=== PATIENT | male | born 1965 | race Caucasian/White ===

== ENCOUNTER 2017-10-26 16:45 | Inpatient (IN) ==
[2017-10-26 17:10] LABS: Basophils % 0.3 % (0.1-2.0); Eosinophils # 0.2 K/mm3 (0.0-0.4); Eosinophils % 1.7 % (0.1-12.0); Hematocrit 53.5 % (42.0-52.0); Hemoglobin 16.7 g/dL (14.1-18.0); Lymphocytes % 19.5 K/mm3 (10-50); Mean Corpuscular HGB Conc 31.2 g/dL (31.8-35.4); Mean Corpuscular Hemoglobin 28.2 pg (27.0-31.2); Mean Corpuscular Volume 90.6 fl (80-94); Mean Platelet Volume 7.3 fl (7.4-10.4); Monocytes # 0.6 K/mm3 (0.1-1.0); Monocytes % 6.3 % (1.7-9.3); Neutrophils # 7.4 K/mm3 (1.8-7.8); Neutrophils % 72.2 % (37.0-80.0); Platelet Count 252 K/mm3 (142-424); Red Cell Distribution Width 13.9 % (11.5-17.5); White Blood Count 10.2 K/mm3 (4.8-10.8)
--- NOTE | 2017-10-26 17:13 | Emergency Department Note ---
ED Disposition Clinical Impression: Acute coronary syndrome Disposition: Still a Patient Condition on Discharge: Good - Critical Care Critical Care Time: No Attestation: On 10/26/17, the high probability of a clinically significant, sudden or life threatening deterioration of the following system(s) required my full and direct attention, intervention and personal management. The time I documented below is in addition to time spent performing reported procedures but includes the following listed in this critical care notation. Medical Decision Making - Alvaro Inquiry Pt receiving controlled substance: No Vital Signs: 10/26/17 16:46 10/26/17 17:46 Temperature 98.2 F Temperature Source Oral Pulse Rate [Right Radial] 66 64 Respiratory Rate 18 24 Blood Pressure [Right Arm] 138/84 167/89 Blood Pressure Mean [Right Arm] 102 115 Blood Pressure Source [Right Arm] Automatic Cuff Blood Pressure Position [Right Arm] Sitting 02 Sat by Pulse Oximetry 96 96 Oxygen Delivery Method Room Air - Lab Data Lab Results 10/26/17 17:00: WBC 10.2, RBC 5.90, Hgb 16.7, Hct 53.5 H, MCV 90.6, MCH 28.2, MCHC 31.2 L, RDW 13.9, Plt Count 252, MPV 7.3 L, Neut % (Auto) 72.2, Lymph % ( Auto) 19.5, Ware % (Auto) 6.3, Eos % (Auto) 1.7, Baso % (Auto) 0.3, Neut # (Auto ) 7.4, Lymph # (Auto) 2.0, Ware # (Auto) 0.6, Eos # (Auto) 0.2, Baso # (Auto) 0.0 10/26/17 17:00: Sodium 143, Potassium 3.7, Chloride 105, Carbon Dioxide 28, Anion Gap 13.7, BUN 15, Creatinine 0.95, Estimated Creat Clear 125, Estimated GFR 83, Est GFR ( Amer) 101, Glucose 95, Troponin I 0.07 H Result diagrams: 10/26/17 17:00 10/26/17 17:00 Orders (Tests/Meds): ED MEDICATIONS Discontinued Medications Generic Name Dose Route Start Last Admin Trade Name Freq PRN Reason Stop Dose Admin Aspirin 81 mg 10/26/17 17:01 10/26/17 17:05 Aspirin 81mg Enteric Coated Tablet PO 10/26/17 17:02 81 mg ONCE ONE Administration Atorvastatin Calcium 40 mg 10/26/17 18:42 Lipitor 40mg Tablet PO 10/26/17 18:43 ONCE ONE Metoprolol Tartrate 50 mg 10/26/17 18:42 Lopressor 50mg Tablet PO 10/26/17 18:43 ONCE ONE Ticagrelor 180 mg 10/26/17 18:41 Brilinta 90mg Tablet PO 10/26/17 18:42 ONCE ONE ORDERS Category Date Time Status XR chest 2V Stat Exams 10/26/17 16:57 Taken - ECG Data Tracing #1 EKG interpreted by Faisal Dawson MD: Rhythm: sinus Rate: 64 Bushnell: normal Ectopy: none Conduction: normal ST Segment Changes: none T Wave Changes: none Q Waves: none No evidence of acute ischemia or injury - Physician Consults Physician Consulted: Suad Time: 18:35 Reason -: Pt condition Comment/Response: Brilinta 180 mg, metoprolol, Lipitor 40 mg, plans to perform left heart cath in the morning. Additional Consult: Hollie Glover Time: 18:45 Reason -: Admission Comment/Response: Agrees to admit the patient to the hospital. We discussed the patient's clinical information, including history, exam, laboratory and radiology results and ED course. Per hospital procedure, I will write temporary bridge inpatient orders on the patient. Specific orders requested by the admitting physician: Serial troponins - D[place] Score for Non-STEMI Age of patient: Less than 65 yrs Number of risk factors for CAD: Presence of less than 3 Prior coronary artery stenosis(seen in coronary angiography): Less than 50% (no prior angiography) ST-Segment deviation on ECG (more than 1 min): Absent Prior aspirin intake: ASA intake in the last 7 days Severe anginal chest pain: No or one episode in last 24 hours Elevated cardiac markers(CK-MB or troponin): Present Non-Stemi Risk Score: 2 (no prior angiography) General Adult HPI - General Chief complaint: Chest Pain Stated complaint: CHEST PAIN Time Seen by Provider: 10/26/17 17:00 Mode of Arrival: Ambulatory Limitations: No Limitations Description of Symptoms (Recalled from ER Triage Doc. by RN): CHEST PRESSURE SINCE 1430 TODAY. STATES AT THE TIME THE PAIN LEVEL WAS AN 8/10 AT THE TIME AND NOW A 1/10. PT REPORTS HX OF HEARTBURN. CHEST PRESSURE ON RIGHT CHEST AND RIGHT ARM/SHOULDER. STATES PAIN OCCURED ONE HOUR AFTER EATING. - History of Present Illness HPI narrative: Right sided chest pain going all the way down his right arm with nausea and vomiting that lasted about 90 minutes. Started about 1 hour after eating a bologna sandwich. Denies shortness of breath or diaphoresis with this episode, but had an episode of severe diaphoresis last night after he got in bed, without chest pain, that lasted about 30 minutes. No known heart disease. He is a smoker. Does not have diabetes or hypertension or hyperlipidemia. Takes an aspirin a day. No other prescription medications. No prior cardiac workup. - Related Data Home Medications Medication Instructions Recorded Confirmed Aspirin [Aspir 81] 81 mg PO DAILY 10/26/17 10/26/17 Allergies Allergy/AdvReac Type Severity Reaction Status Date / Time No Known Allergies Allergy Verified 10/26/17 16:57 [facility] History I have reviewed the patient's past medical history: Yes Medical History: Denies:: Cancer, Diabetes Mellitus Type 1, Diabetes Mellitus Type 2, MRSA Amputation: Yes (RIGHT BELOW THE ELBOW AMPUTATION) - Social History Smoking Status: Current every day smoker Tobacco Type: cigars # Packs/Day (cigarettes): 1 Alcohol Intake: current Alcohol Intake Frequency:: a few times a week - Psychiatric History Expresses thoughts of harming self/others: None Suicide Plan Description: No Plan ROS Obtained: Yes All systems reviewed & no additional complaints - Constitutional Constitutional: Reports excessive sweating, Denies fever(s) - Cardiovascular Cardiovascular: Reports chest pain - Respiratory Respiratory: No dyspnea - Gastrointestinal Gastrointestingal: Reports: nausea, vomiting. Denies: abdominal pain Physical Exam - General General appearance: alert, in no apparent distress - Head Head exam: atraumatic, normocephalic, normal inspection - Eye Eye exam: Present: normal appearance, PERRL, EOMI - ENT ENT exam: Present: normal exam, normal oropharynx, mucous membranes moist, TM's normal bilaterally, normal external ear exam - Neck Neck exam: Present: normal inspection, full ROM, trachea midline. Absent: meningismus, lymphadenopathy - Chest Chest inspection: Present: normal inspection, symmetric chest wall rise. Absent : tenderness - Respiratory Respiratory exam: Present: normal lung sounds bilaterally. Absent: respiratory distress - Cardiovascular Cardiovascular exam: Present: regular rate, normal rhythm. Absent: JVD - Abdominal Exam Abdominal exam: Present: soft, normal bowel sounds. Absent: distention, tenderness, guarding - Extremities Exam Extremities exam: Present: normal inspection, full ROM, normal capillary refill. Absent: calf tenderness - Expanded Upper Extremity Exam Right Comment: Amputation of right upper extremity at the mid forearm - Back Exam Back exam: Present: normal inspection. Absent: tenderness - Neurological Exam Neurological exam: Present: alert, oriented X3 - Psychiatric Psychiatric exam: Present: normal affect, normal mood - Skin Skin exam: Present: warm, dry, intact, normal color - Lymphatic Lymphatic Findings: no adenopathy
[2017-10-26 17:29] LABS: Anion Gap 13.7 mEq/L (5-15); Potassium 3.7 mmoL/L (3.5-5.1)
--- NOTE | 2017-10-27 07:35 | Pharmacy Consult Notes ---
[facility] Pharmacy VTE Monitoring - Patient Demographics Admission date: 10/26/17 Report Date: 10/27/17 Time: 07:34 Allergies/Adverse Reactions: Patient Allergies No Known Allergies Allergy (Verified 10/26/17 16:57) Height: 1.85 m Weight: 97.267 kg Patient Problems: Current Active Problems Acute coronary syndrome (Acute) - VTE Risk Labs: VTE Related Lab Results Hgb 16.7 g/dL (14.1-18.0) 10/26/17 17:00 Hct 53.5 % (42.0-52.0) H 10/26/17 17:00 Plt Count 252 K/mm3 (142-424) 10/26/17 17:00 BUN 15 mg/dL (7-18) 10/26/17 17:00 Creatinine 0.95 mg/dL (0.70-1.30) 10/26/17 17:00 Estimated Creat Clear 125 mL/min (0-300) 10/26/17 17:00 Was VTE Risk Assessment Performed: Yes VTE Score: 2 VTE Risk Level: Low Risk - Prophylaxis VTE Prophylaxis Ordered?: Yes Types of VTE Prophylaxis: TEDS Knee High Location of Applied Device: Bilateral Lower Extremeties - VTE Diagnosis Confirmed Treatment or plan recommended: Continue Current Treatment
--- NOTE | 2017-10-27 07:49 | Consult Report ---
History of Present Illness Consult date: 10/27/17 Requesting physician: Yevgeniy Glover Consult reason: chest pain Chief complaint: chest pain Additional Medical History:: 1. Tobacco use, since age 15, up to 2 ppd, stopped 3 months ago 2. FH of CAD in father with VT at age 62 3. 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 A. Anticoagulant for several months then ASA daily since 4. 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 Symptoms progressed and included vomiting. Pt came to ER for evaluation and was admitted. Symptoms were intermittent for a couple of hours with the longest episode lasting about 45 min. EKG was sinus without acute ST segment changes. Troponins noted to be elevated and patient started on Brilinta and beta gayle along with statin. No further chest pain overnight. In retrospect, he did have some diaphoresis the night before without chest pain. [facility] History Medical History: Denies:: Cancer, Diabetes Mellitus Type 1, Diabetes Mellitus Type 2, MRSA Laterality Cases: Right: Other Amputation: Yes (RIGHT BELOW THE ELBOW AMPUTATION) - *Social History Educational Level: Completed Grade School Smoking Status: Current every day smoker Tobacco Type: cigars # Packs/Day (cigarettes): 1 Alcohol Intake: never Alcohol Intake Frequency:: a few times a week Occupational Status: employed Housing: apartment Household Members: spouse - Psychiatric History Expresses thoughts of harming self/others: None Suicide Plan Description: No Plan *Family Hx:: Coronary Artery Disease, Heart Attack Meds Home Medications Medication Instructions Recorded Confirmed Type Aspirin [Aspir 81] 81 mg PO DAILY 10/26/17 10/26/17 History Allergies Allergy/AdvReac Type Severity Reaction Status Date / Time No Known Allergies Allergy Verified 10/26/17 16:57 Review of Systems - *Cardiovascular Reports chest pain - *Respiratory Denies shortness of breath - *Gastrointestinal Reports abdominal pain Exam Vital signs and Labs for Last 24 Hours: Temp Pulse Resp BP Pulse Ox 97.9 F 59 L 16 133/71 96 10/27/17 04:00 10/27/17 04:00 10/27/17 04:00 10/27/17 04:00 10/27/17 04:00 Laboratory Results - last 24 hr 10/26/17 17:00: WBC 10.2, RBC 5.90, Hgb 16.7, Hct 53.5 H, MCV 90.6, MCH 28.2, MCHC 31.2 L, RDW 13.9, Plt Count 252, MPV 7.3 L, Neut % (Auto) 72.2, Lymph % ( Auto) 19.5, [place] % (Auto) 6.3, Eos % (Auto) 1.7, Baso % (Auto) 0.3, Neut # (Auto ) 7.4, Lymph # (Auto) 2.0, [place] # (Auto) 0.6, Eos # (Auto) 0.2, Baso # (Auto) 0.0 10/26/17 17:00: Sodium 143, Potassium 3.7, Chloride 105, Carbon Dioxide 28, Anion Gap 13.7, BUN 15, Creatinine 0.95, Estimated Creat Clear 125, Estimated GFR 83, Est GFR ( Amer) 101, Glucose 95, Troponin I 0.07 H 10/26/17 19:30: Troponin I 0.68 H 10/26/17 22:15: Troponin I 2.76 H 10/27/17 05:25: Troponin I 4.04 H I & O for Last 24 hours: Intake & Output 10/24/17 10/25/17 10/26/17 10/27/17 11:59 11:59 11:59 11:59 Intake Total 480 / 480 Balance 480 / 480 Weight 214 lb 7 oz - *Routine Neck Exam Absent: JVD, carotid bruit - *Routine Respiratory Exam Present: decreased breath sounds, CTA bilaterally - *Routine Cardiovascular Exam Present: RRR. Absent: murmur, gallop, rubs - *Routine Extremities Exam Absent: edema Comments: Right arm missing below the mid forearm - *Routine Neurological Exam Present: alert, oriented X3, moving all extremities Assessment and Plan (1) Acute coronary syndrome Current visit: Yes Status: Acute Category: Medical Code(s): I24.9 - Acute ischemic heart disease, unspecified (2) Ex-smoker for less than 1 year Current visit: Yes Status: Acute Category: Social Hx Code(s): Z78.9 - Other specified health status (3) FH: CAD (coronary artery disease) Current visit: Yes Status: Acute Category: Medical Code(s): Z82.49 - Family history of ischemic heart disease and other diseases of the circulatory system - Assessment and plan all Dx Assessment and Plan for all problems:: 1. Continue ASA, Brilinta, statin and beta gayle 2. [facility] today. Risks, benefits and procedure explained. Pt and 's questions answered. Pt agreeable to proceed. 3. Further recommendations to follow.
--- NOTE | 2017-10-27 08:38 | History & Physical Report ---
*Admission Date: 10/26/17 *Chief complaint: chest pain *History of present illness: 52 yo WM smoker with onset of right sided abdomen and chest pain/pressure with radiation to right arm after eating bologna sandwich. Symptoms progressed and included vomiting. Pt came to ER for evaluation and was admitted. Symptoms were intermittent for a couple of hours with the longest episode lasting about 45 min. EKG was sinus without acute ST segment changes. Troponins noted to be elevated and patient started on Brilinta and beta gayle along with statin. No further chest pain overnight. [facility] History I have reviewed the patient's past medical history: Yes Medical History: Denies:: Cancer, Diabetes Mellitus Type 1, Diabetes Mellitus Type 2, MRSA Laterality Cases: Right: Other Amputation: Yes (RIGHT BELOW THE ELBOW AMPUTATION) - *Social History Educational Level: Completed Grade School Smoking Status: Current every day smoker Tobacco Type: cigars # Packs/Day (cigarettes): 1 Alcohol Intake: never Alcohol Intake Frequency:: a few times a week Occupational Status: employed Housing: apartment Household Members: spouse - Psychiatric History Expresses thoughts of harming self/others: None Suicide Plan Description: No Plan *Family Hx:: Coronary Artery Disease, Heart Attack Review of Systems - Review of Systems Review of systems:: pertinent systems reviewed and negative unless documented below - Constitutional Denies body ache(s), Denies fever(s), Denies headache(s), Denies weakness - Eyes Denies change in vision - ENT Denies bleeding gums - *Cardiovascular Reports chest pain, Reports chest pain at rest, Reports chest pain with activity - *Respiratory Denies chest congestion, Denies cough - *Gastrointestinal Denies bloating - *Genitourinary Denies urinary frequency - *Musculoskeletal Denies decreased muscle mass, Denies body aches - Integumentary/Breasts Denies change in hair, Denies rash - *Neurologic Denies abnormal movements - Psychiatric Denies anxiety, Denies change in appetite - Endocrine Denies flushing - Hematologic/Lymphatic Denies enlarged lymph nodes - Allergic/Immunologic Denies lip swelling Meds Home Medications Medication Instructions Recorded Confirmed Type Aspirin [Aspir 81] 81 mg PO DAILY 10/26/17 10/26/17 History Allergies Allergy/AdvReac Type Severity Reaction Status Date / Time No Known Allergies Allergy Verified 10/26/17 16:57 Exam Vital signs and Labs for Last 24 Hours: Temp Pulse Resp BP Pulse Ox 98.4 F 56 L 16 125/70 96 10/27/17 07:55 10/27/17 07:55 10/27/17 07:55 10/27/17 07:55 10/27/17 07:55 Laboratory Results - last 24 hr 10/26/17 17:00: WBC 10.2, RBC 5.90, Hgb 16.7, Hct 53.5 H, MCV 90.6, MCH 28.2, MCHC 31.2 L, RDW 13.9, Plt Count 252, MPV 7.3 L, Neut % (Auto) 72.2, Lymph % ( Auto) 19.5, Anderson % (Auto) 6.3, Eos % (Auto) 1.7, Baso % (Auto) 0.3, Neut # (Auto ) 7.4, Lymph # (Auto) 2.0, Anderson # (Auto) 0.6, Eos # (Auto) 0.2, Baso # (Auto) 0.0 10/26/17 17:00: Sodium 143, Potassium 3.7, Chloride 105, Carbon Dioxide 28, Anion Gap 13.7, BUN 15, Creatinine 0.95, Estimated Creat Clear 125, Estimated GFR 83, Est GFR ( Amer) 101, Glucose 95, Troponin I 0.07 H 10/26/17 19:30: Troponin I 0.68 H 10/26/17 22:15: Troponin I 2.76 H 10/27/17 05:25: Troponin I 4.04 H I & O for Last 24 hours: Intake & Output 10/24/17 10/25/17 10/26/17 10/27/17 11:59 11:59 11:59 11:59 Intake Total 480 / 480 Balance 480 / 480 Weight 214 lb 7 oz - Constitutional no acute distress - *Routine HEENT Exam Head: Present: normocephalic Eye: Present: PERRL ENT: Present: mucous membranes moist - *Routine Neck Exam Present: full ROM - *Routine Respiratory Exam Present: CTA bilaterally - *Routine Cardiovascular Exam Present: RRR, Normal S1, Normal S2 - *Routine Abdominal Exam Present: soft, normoactive bowel sounds - *Routine Extremities Exam Present: full ROM Comments: Amputation to the right upper extremity right at the elbow- old injury - *Routine Skin Exam Present: intact - *Routine Neurological Exam Present: alert, oriented X3, CN II-XII intact - Routine Psychiatric Exam Present: normal affect, normal thought process H&P: Result - Labs Labs: Short CBC 10/26/17 Range/Units 17:00 WBC 10.2 (4.8-10.8) K/mm3 Hgb 16.7 (14.1-18.0) g/dL Hct 53.5 H (42.0-52.0) % Plt Count 252 (142-424) K/mm3 BMP 10/26/17 17:00 Sodium 143 Potassium 3.7 Chloride 105 Carbon Dioxide 28 BUN 15 Creatinine 0.95 Glucose 95 Cardiac Enzymes 10/26/17 10/26/17 10/26/17 Range/Units 17:00 19:30 22:15 Troponin I 0.07 H 0.68 H 2.76 H (0.00-0.06) ng/ml 10/27/17 Range/Units 05:25 Troponin I 4.04 H (0.00-0.06) ng/ml Assessment and Plan (1) Acute coronary syndrome Current visit: Yes Status: Acute Category: Medical Code(s): I24.9 - Acute ischemic heart disease, unspecified (2) Ex-smoker for less than 1 year Current visit: Yes Status: Acute Category: Social Hx Code(s): Z78.9 - Other specified health status (3) FH: CAD (coronary artery disease) Current visit: Yes Status: Acute Category: Medical Code(s): Z82.49 - Family history of ischemic heart disease and other diseases of the circulatory system - Assessment and plan all Dx Assessment and Plan for all problems:: Heart cath today Rounded with Dr. Glover all orders per Belen
[2017-10-28 06:27] LABS: Hematocrit 49.8 % (42.0-52.0); Hemoglobin 15.3 g/dL (14.1-18.0)
--- NOTE | 2017-10-28 07:30 | Progress Note ---
Subjective Date: 10/28/17 Time: 07:27 Principal diagnosis: NSTEMI Interval history: 52 yo WM in bed in NAD. No complaints. Ready to go home. Discussed meds and diet changes. Exam Vital signs and Labs for Last 24 Hours: Temp Pulse Resp BP Pulse Ox 98.4 F 85 17 94/50 93 L 10/27/17 20:00 10/28/17 06:00 10/28/17 03:41 10/28/17 06:00 10/28/17 06:00 Laboratory Results - last 24 hr 10/27/17 12:49: Activated Clotting Time 297 H* 10/28/17 06:08: Hgb 15.3, Hct 49.8 10/28/17 06:08: Creatinine 0.92, Estimated Creat Clear 129, Estimated GFR 86, Est GFR ( Amer) 105 I & O for Last 24 hours: Intake & Output 10/25/17 10/26/17 10/27/17 10/28/17 11:59 11:59 11:59 11:59 Intake Total 510 / 510 370 / 370 Output Total 500 / 500 Balance 510 / 510 -130 / -130 Weight 214 lb 7 oz - *Routine Respiratory Exam Present: CTA bilaterally - *Routine Cardiovascular Exam Present: RRR. Absent: murmur, gallop - *Routine Extremities Exam Absent: edema Progress Note: A&P (1) Acute coronary syndrome Status: Acute Current Visit: Yes (2) Ex-smoker for less than 1 year Status: Acute Current Visit: Yes (3) FH: CAD (coronary artery disease) Status: Acute Current Visit: Yes (4) NSTEMI (non-ST elevated myocardial infarction) Status: Acute Current Visit: Yes Assessment and Plan for All Diagnoses:: OK for discharge from cardiology standpoint. Telemetry shows no arrhythmias. Sinus bradycardia. Meds: ASA 81 mg daily Brilinta 90 mg BID Lisinopril 2.5 mg daily Metoprolol 25 mg BID Atorvastatin 40 mg daily Follow up in one week.
[2017-10-28 08:27] VITALS: BP 117/65
--- NOTE | 2017-10-28 08:58 | Discharge Summary ---
General - General Admission date:: 10/26/17 Discharge date: 10/28/17 HPI HPI: 52 yo WM smoker with onset of right sided abdomen and chest pain/pressure with radiation to right arm after eating bologna sandwich. Symptoms progressed and included vomiting. Pt came to ER for evaluation and was admitted. Symptoms were intermittent for a couple of hours with the longest episode lasting about 45 min. EKG was sinus without acute ST segment changes. Troponins noted to be elevated and patient started on Brilinta and beta gayle along with statin. No further chest pain overnight. Hospital Course Hospital Course: Patient states today he is feeling fine denies any chest pain or pressure. We will discharge home with new medications patient to follow-up with Dr. Suad Glover next week. ANGIOGRAPHIC RESULTS: 1. The left main artery has an ostial 10-20% stenosis 2. The left anterior descending artery has a very proximal 40% stenosis followed by a very hazy 70% stenosis immediately proximal to a large first diagonal artery. The mid LAD then has an additional 30-40% mid vessel stenosis 3. The circumflex artery is a nondominant yet still large vessel giving rise to a large first obtuse marginal artery with multiple distal branches. The first obtuse marginal artery has a proximal 90% stenosis 4. The right coronary artery is a dominant vessel and has proximal and mid vessel 20% stenoses 5. The [place] ventriculogram reveals normal ejection fraction 65% 6. The left ventricular end-diastolic pressure 10 mmHg IMPRESSION: 1.Severe 2 vessel coronary artery disease as described above 2.Successful stenting the proximal LAD severe stenosis reduced to 0% with 1 drug-eluting stent 3. Successful stenting of the large first obtuse marginal artery off the circumflex artery severe disease reduced to 0% with 1 drug-eluting stent 4. Normal ejection fraction and normal left ventricular end-diastolic pressure PLAN: 1. Continue Brilinta and aspirin for one year 2. LDL less than 55 with aggressive risk factor modification 3. Avoidance of tobacco products with physical therapy and cardiac rehabilitation 4. Carvedilol and lisinopril if blood pressure will allow Objective Vital signs: Temp Pulse Resp BP Pulse Ox 98.4 F 54 L 18 117/65 93 L 10/27/17 20:00 10/28/17 08:26 10/28/17 08:26 10/28/17 08:26 10/28/17 06:00 no acute distress - *Routine HEENT Exam Head: Present: normocephalic Eye: Present: PERRL ENT: Present: mucous membranes moist - *Routine Neck Exam Present: supple, full ROM - *Routine Respiratory Exam Present: CTA bilaterally - *Routine Cardiovascular Exam Present: RRR - *Routine Abdominal Exam Present: soft, normoactive bowel sounds - *Routine Extremities Exam Present: full ROM - *Routine Skin Exam Present: intact - *Routine Neurological Exam Present: alert, oriented X3, CN II-XII intact - Routine Psychiatric Exam Present: normal affect, normal thought process Results Labs on day of discharge: Labs from last 24 hours 10/28/17 10/28/17 10/27/17 06:08 06:08 12:49 Hgb 15.3 Hct 49.8 Activated Clotting Time 297 H* Creatinine 0.92 Estimated Creat Clear 129 Estimated GFR 86 Est GFR ( Amer) 105 - Additional Comments Rounded with Dr. Glover all orders per Belen DS: Diagnosis - Discharge Diagnosis (1) Acute coronary syndrome Status: Acute (2) Ex-smoker for less than 1 year Status: Acute (3) FH: CAD (coronary artery disease) Status: Acute (4) NSTEMI (non-ST elevated myocardial infarction) Status: Acute Discharge Plan - Patient Discharge Instructions ACTIVITY: Continue current activity DIET: continue same diet - Follow up Plan Follow up with: Dawit Borjas MD [Staff Physician] - 1 week Yevgeniy Glover MD [Primary Care Provider] - 1 week Disposition: Home, Self-Care Prescriptions/Medication Reconciliation: New Atorvastatin Calcium [Lipitor 40mg Tablet] 40 mg PO HS 30 Days #30 tab Lisinopril [Zestril 2.5mg Tablet] 2.5 mg PO DAILY 30 Days #30 tab Metoprolol Tartrate [Lopressor 25mg tablet] 25 mg PO BID 30 Days #60 tab Ticagrelor [Brilinta 90mg Tablet] 90 mg PO BID 30 Days #60 tab Continue Aspirin [Aspir 81] 81 mg PO DAILY 30 Days #30 tablet.
== END 2017-10-28 10:10 | disposition home or self-care (01) ==
LOC: ER 16:45 → 2ND 16:45 → OBSVTOIN 18:49 → 2ND 19:32
PROVIDERS: ADMIT Internal Medicine Adolescent Medicine; ATTEND Emergency Medicine

== ENCOUNTER → 2017-11-04 07:56 | Outpatient (CLI) | payer BC, SELFPAY ==
[2017-11-04 10:16] LABS: Alanine Aminotransferase 27 U/L (12-78); Albumin Level 3.7 gm/dL (3.4-5.0); Alkaline Phosphatase 120 U/L (46-116); Bilirubin,Direct 0.1 mg/dL (0.0-0.2); Bilirubin,Indirect 0.2 mg/dL (0.0-0.9); Bilirubin,Total 0.3 mg/dL (0.2-1.0); Chol/HDL Ratio 5.4 (1-3.5); Cholesterol 158 mg/dL (140-200); HDL Cholesterol 29 mg/dL (27-67); LDL Cholesterol 111 mg/dL (0-130); Total Protein,Serum 7.1 gm/dL (6.4-8.2); Triglycerides 92 mg/dL (30-200); VLDL Cholesterol 18 mg/dL (0-40)
[2017-11-04 10:26] LABS: Aspartate Amino Transferase 20 U/L (15-37)
== END ==
PROVIDERS: Visit Provider Internal Medicine
DX: I25.10 Atherosclerotic heart disease of native coronary artery without angina pectoris (principal); I10 Essential (primary) hypertension; E78.5 Hyperlipidemia, unspecified
CPT/HCPCS: 36415; 80061; 80076

== ENCOUNTER → 2018-03-18 10:06 | Outpatient (CLI) | payer BC, SELFPAY ==
[2018-03-18 11:15] LABS: Alanine Aminotransferase 27 U/L (12-78); Albumin Level 3.5 gm/dL (3.4-5.0); Alkaline Phosphatase 101 U/L (46-116); Aspartate Amino Transferase 22 U/L (15-37); Bilirubin,Direct 0.1 mg/dL (0.0-0.2); Bilirubin,Indirect 0.5 mg/dL (0.0-0.9); Bilirubin,Total 0.6 mg/dL (0.2-1.0); Chol/HDL Ratio 4.1 (1-3.5); Cholesterol 123 mg/dL (140-200); HDL Cholesterol 30 mg/dL (27-67); LDL Cholesterol 80 mg/dL (0-130); Total Protein,Serum 6.8 gm/dL (6.4-8.2); Triglycerides 63 mg/dL (30-200); VLDL Cholesterol 13 mg/dL (0-40)
== END ==
PROVIDERS: Family Provider Emergency Medicine; PCP Emergency Medicine; Visit Provider Physician Assistant
DX: E78.49 Other hyperlipidemia (principal); I11.9 Hypertensive heart disease without heart failure; I21.4 Non-ST elevation (NSTEMI) myocardial infarction; I24.9 Acute ischemic heart disease, unspecified; I25.10 Atherosclerotic heart disease of native coronary artery without angina pectoris; R94.31 Abnormal electrocardiogram [ECG] [EKG]; F17.200 Nicotine dependence, unspecified, uncomplicated; Z72.0 Tobacco use
CPT/HCPCS: 36415; 80061; 80076

== ENCOUNTER → 2019-03-13 08:47 | Outpatient (CLI) | payer BC, SELFPAY ==
[2019-03-13 09:28] LABS: Alanine Aminotransferase 17 U/L (12-78); Albumin Level 3.6 gm/dL (3.4-5.0); Alkaline Phosphatase 95 U/L (46-116); Aspartate Amino Transferase 18 U/L (15-37); Bilirubin,Direct 0.1 mg/dL (0.0-0.2); Bilirubin,Indirect 0.2 mg/dL (0.0-0.9); Bilirubin,Total 0.3 mg/dL (0.2-1.0); Chol/HDL Ratio 3.4 (1-3.5); Cholesterol 116 mg/dL (140-200); HDL Cholesterol 34 mg/dL (27-67); LDL Cholesterol 66 mg/dL (0-130); Total Protein,Serum 7.4 gm/dL (6.4-8.2); Triglycerides 78 mg/dL (30-200); VLDL Cholesterol 16 mg/dL (0-40)
== END ==
PROVIDERS: Visit Provider Nurse Practitioner Family
DX: E78.5 Hyperlipidemia, unspecified (principal); I11.9 Hypertensive heart disease without heart failure; I25.10 Atherosclerotic heart disease of native coronary artery without angina pectoris; Z72.0 Tobacco use
CPT/HCPCS: 36415; 80061; 80076

== ENCOUNTER → 2020-04-14 07:42 | Outpatient (CLI) | payer BC, SELFPAY ==
--- NOTE | 2020-04-14 07:43 | CA_ITS ---
APPROVED REPORT EXAM: Comprehensive 2D, Doppler, and color-flow Echocardiogram Fan Runner: Marie Leonard RDCS Ht: 6 ft 1 in Wt: 215lbs BSA: 2.22 BP: 143/73 mmHg Indications: CAD,SMOKER,HTN,HLP 2D Dimensions LVOT 1.74 cm (M/F) 1.5-2.5 M-Mode Dimensions RVDd 2.55 cm (0.9-2.6) LA Diam 2.64 cm (1.9-4.0) LVDd 5.52 cm (3.5-5.7) Ao Diam 3.32 cm (2.0-3.7) LVDs 4.76 cm (3.5-5.7) IVSd 0.68 cm (0.6-1.1) PWd 0.68 cm (0.6-1.1) EF (Teich) 29.10% FS 13.80% EDV (Teich) 148.70 mL ESV (Teich) 105.40 mL LV Diastology E Decel Time 183.00 (160-240 msec) E/A Ratio 1.1 MED E' 9.40 (< 7 cm/sec) E'/MED E' Ratio 8.13 (>14) LAT E' 9.70 (<10 cm/sec) E/LAT E' Ratio 7.88 (>14) Mitral Valve MV E Max Seven. 76.00 (40-130 cm/s) MV A Velocity 68.00 (40-130 cm/s) E/A Ratio 1.12 MV Decel. Time 183.00 (160-240 ms) MV PHT 54.00 ms Left Ventricle Technically very difficult study because of the patient factors and poor acoustic windows, left ventricle is normal size, visually estimated ejection fraction 50% with mild inferior basal wall hypokinesis, endocardial surfaces are very poorly visualized, repeat study with Definity contrast is recommended. Right Ventricle Right atrium and right ventricle are normal size and contractility. Aortic Valve Aortic valve is minimally thickened and fibrosed, there is no aortic stenosis or aortic insufficiency. Mitral Valve Mitral valve is grossly normal, there is mild mitral regurgitation. Tricuspid Valve Tricuspid valve is grossly normal, there is mild tricuspid regurgitation, tricuspid regurgitation jet velocity is inadequate for calculation of the right ventricular systolic pressure. Pulmonic Valve Pulmonic valve is poorly visualized. Great Vessels Aortic root is normal size. Pericardium No significant pericardial effusion noted. Conclusion 1. Technically very poor and difficult study, repeat study with Definity contrast is recommended. 2. Normal left ventricular size, visually estimated ejection fraction 50% with segmental wall motion abnormality described above, endocardial surfaces are very poorly visualized. Diastolic parameters are inconclusive. 3. Mild mitral and tricuspid regurgitation. 4. No significant pericardial effusion noted. Electronically signed by : Huber Sifuentes, 04/15/2020 05:59:51
== END ==
PROVIDERS: PCP Emergency Medicine; Visit Provider Urology
DX: I25.10 Atherosclerotic heart disease of native coronary artery without angina pectoris (principal); I11.9 Hypertensive heart disease without heart failure; E78.5 Hyperlipidemia, unspecified; Z72.0 Tobacco use
CPT/HCPCS: 93306

== ENCOUNTER → 2020-07-08 07:42 | Outpatient (CLI) | payer BC, SELFPAY ==
[2020-07-08 08:59] LABS: Alanine Aminotransferase 21 U/L (12-78); Albumin Level 4.4 g/dl (3.5-5.0); Alkaline Phosphatase 96 U/L (38-126); Aspartate Amino Transferase 30 U/L (17-59); Bilirubin,Direct 0.3 mg/dl (0.0-0.4); Bilirubin,Indirect 0.4 mg/dL (0.0-0.9); Bilirubin,Total 0.7 mg/dl (0.2-1.3); Bilirubin,Unconjugated 0.4 mg/dL (0.0-1.1); Chol/HDL Ratio 3.4 (1-3.5); Cholesterol 138 mg/dl (140-200); HDL Cholesterol 41 mg/dl (40-60); Total Protein,Serum 7.6 g/dl (6.3-8.2); Triglycerides 89 mg/dl (30-150); VLDL Cholesterol 18 mg/dL (0-40)
[2020-07-08 09:10] LABS: Direct LDL Cholesterol 77.58 mg/dL (100-129)
== END ==
PROVIDERS: Nurse Practitioner Family; Visit Provider Internal Medicine
DX: E78.2 Mixed hyperlipidemia (principal)
CPT/HCPCS: 36415; 80061; 80076

== ENCOUNTER → 2021-06-13 12:22 | Outpatient (CLI) | payer BC, SELFPAY | PROVIDERS: PCP Emergency Medicine; Visit Provider Nurse Practitioner Family | DX: U07.1 COVID-19 (principal) | CPT/HCPCS: C9803; U0003; U0005 ==

== ENCOUNTER → 2021-07-14 08:43 | Outpatient (CLI) | payer BC, SELFPAY ==
--- NOTE | 2021-07-14 08:59 | XR_ITS ---
FINAL REPORT CLINICAL HISTORY: tobacco use.. COMPARISON: 10/26/2017 FINDINGS: TWO VIEWS OF THE CHEST The heart is normal in size. The mediastinum is unremarkable. The lungs are hyperinflated consistent with COPD. Mild scarring is noted. There is no pneumothorax. IMPRESSION: COPD. Reviewed, Interpreted and Dictated by João Waters III, MD Transcribed by Echo Woodard Authenticated by João Waters III, MD on 07/14/2021 11:04:16 AM [facility]
[2021-07-14 10:04] LABS: Basophils % 0.4 % (0.1-2.0); Eosinophils # 0.1 K/mm3 (0.0-0.4); Eosinophils % 1.3 % (0.1-12.0); Hemoglobin 17.4 g/dL (14.1-18.0); Lymphocytes # 1.8 K/mm3 (0.7-4.5); Lymphocytes % 23.5 % (10-50); Mean Corpuscular HGB Conc 32.3 g/dL (31.8-35.4); Mean Corpuscular Hemoglobin 30.6 pg (27.0-31.2); Mean Corpuscular Volume 94.9 fl (80-94); Monocytes # 0.5 K/mm3 (0.1-1.0); Monocytes % 6.1 % (1.7-9.3); Neutrophils # 5.4 K/mm3 (1.8-7.8); Neutrophils % 68.7 % (37.0-80.0); Platelet Count 195 K/mm3 (142-424); Red Blood Count 5.69 M/mm3 (4.60-6.20); Red Cell Distribution Width 13.6 % (11.5-17.5); White Blood Count 7.8 K/mm3 (4.8-10.8)
[2021-07-14 10:30] LABS: Bilirubin,Unconjugated 0.3 mg/dL (0.0-1.1); Blood Urea Nitrogen 17 mg/dl (9-20); Carbon Dioxide 30 mmol/L (22.0-30.0); Estimated Glomerular Filt Rate 100 ml/min (>60); GFR (African American) 121 ML/MIN (>60)
[2021-07-14 10:31] LABS: Alkaline Phosphatase 80 U/L (38-126); Bilirubin,Direct 0.3 mg/dl (0.0-0.4); Bilirubin,Indirect 0.3 mg/dL (0.0-0.9); Bilirubin,Total 0.6 mg/dl (0.2-1.3); Cholesterol 176 mg/dl (140-200); Triglycerides 82 mg/dl (30-150); VLDL Cholesterol 16 mg/dL (0-40)
[2021-07-14 10:41] LABS: Chloride 104 mmol/L (98-107)
[2021-07-14 10:42] LABS: Direct LDL Cholesterol 121.65 mg/dL (100-129); Sodium 137 mmol/L (136-145)
[2021-07-14 10:44] LABS: Alanine Aminotransferase 19 U/L (12-78)
[2021-07-14 10:45] LABS: Albumin Level 4.3 g/dl (3.5-5.0); Aspartate Amino Transferase 29 U/L (17-59); Calcium 8.6 mg/dl (8.4-10.2); Chol/HDL Ratio 4.3 (1-3.5); Glucose 104 mg/dl (74-100); HDL Cholesterol 41 mg/dl (40-60); Total Protein,Serum 7.2 g/dl (6.3-8.2)
[2021-07-14 11:08] LABS: Anion Gap 7.6 mEq/L (5-15); Potassium 4.6 mmoL/L (3.5-5.1)
== END ==
PROVIDERS: PCP Emergency Medicine; Visit Provider Physician Assistant
DX: I25.10 Atherosclerotic heart disease of native coronary artery without angina pectoris (principal); R00.1 Bradycardia, unspecified; I11.9 Hypertensive heart disease without heart failure; E78.2 Mixed hyperlipidemia; I63.9 Cerebral infarction, unspecified; E11.9 Type 2 diabetes mellitus without complications; Z72.0 Tobacco use
CPT/HCPCS: 36415; 71046; 80048; 80061; 80076; 85025

== ENCOUNTER → 2021-12-29 10:04 | Outpatient (CLI) | payer BC, SELFPAY ==
[2021-12-29 11:10] LABS: Basophils # 0.1 K/mm3 (0-0.2); Basophils % 0.6 % (0.1-2.0); Eosinophils # 0.1 K/mm3 (0.0-0.4); Eosinophils % 1.5 % (0.1-12.0); Hematocrit 50.3 % (42.0-52.0); Lymphocytes # 1.7 K/mm3 (0.7-4.5); Lymphocytes % 19.1 % (10-50); Mean Corpuscular HGB Conc 31.8 g/dL (31.8-35.4); Mean Corpuscular Hemoglobin 30.4 pg (27.0-31.2); Mean Corpuscular Volume 95.6 fl (80-94); Mean Platelet Volume 8.4 fl (7.4-10.4); Monocytes # 0.7 K/mm3 (0.1-1.0); Monocytes % 7.3 % (1.7-9.3); Neutrophils # 6.3 K/mm3 (1.8-7.8); Neutrophils % 71.4 % (37.0-80.0); Platelet Count 205 K/mm3 (142-424); Red Blood Count 5.26 M/mm3 (4.60-6.20); White Blood Count 8.8 K/mm3 (4.8-10.8)
[2021-12-29 11:36] LABS: Chloride 106 mmol/L (98-107); Potassium 4.5 mmoL/L (3.5-5.1); Sodium 139 mmol/L (136-145)
[2021-12-29 11:39] LABS: Alanine Aminotransferase 21 U/L (12-78); Anion Gap 10.5 mEq/L (5-15); Aspartate Amino Transferase 35 U/L (17-59); Bilirubin,Unconjugated 0.1 mg/dL (0.0-1.1); Calcium 9.5 mg/dl (8.4-10.2); Carbon Dioxide 27 mmol/L (22.0-30.0); Glucose 110 mg/dl (74-100)
[2021-12-29 11:40] LABS: Albumin Level 4.2 g/dl (3.5-5.0); Alkaline Phosphatase 108 U/L (38-126); Bilirubin,Direct 0.2 mg/dl (0.0-0.4); Bilirubin,Indirect 0.1 mg/dL (0.0-0.9); Bilirubin,Total 0.3 mg/dl (0.2-1.3); Chol/HDL Ratio 3.5 (1-3.5); Cholesterol 114 mg/dl (140-200); HDL Cholesterol 33 mg/dl (40-60); Total Protein,Serum 6.8 g/dl (6.3-8.2); Triglycerides 50 mg/dl (30-150); VLDL Cholesterol 10 mg/dL (0-40)
[2021-12-29 11:51] LABS: Direct LDL Cholesterol 72.66 mg/dL (100-129)
[2021-12-29 13:14] LABS: Blood Urea Nitrogen 17 mg/dl (9-20); Estimated Glomerular Filt Rate 100 ml/min (>60); GFR (African American) 121 ML/MIN (>60)
== END ==
PROVIDERS: PCP Emergency Medicine; Visit Provider Physician Assistant
DX: I25.10 Atherosclerotic heart disease of native coronary artery without angina pectoris (principal); I11.9 Hypertensive heart disease without heart failure; R00.1 Bradycardia, unspecified; E78.5 Hyperlipidemia, unspecified; Z72.0 Tobacco use; Z82.49 Family history of ischemic heart disease and other diseases of the circulatory system
CPT/HCPCS: 36415; 80048; 80061; 80076; 85025

== ENCOUNTER 2022-06-03 16:31 | Emergency (ER) | payer BC, SELFPAY ==
[2022-06-03 16:37] VITALS: BP 126/72; PULSE 76; RESP 18; TEMP 37.4; O2SAT 98; BMI 24.1
--- NOTE | 2022-06-03 16:44 | XR_ITS ---
PROCEDURE INFORMATION: Exam: XR Chest Exam date and time: 06/03/2022 5:08 PM Age: 57 years old Clinical indication: Shortness of breath; Additional info: Sob/cp TECHNIQUE: Imaging protocol: Radiologic exam of the chest. Views: 1 view. COMPARISON: CR XR CHEST 2V 07/14/2021 9:24 AM FINDINGS: Lungs: Unremarkable. No consolidation. Pleural spaces: Unremarkable. No pleural effusion. No pneumothorax. Heart/Mediastinum: Unremarkable. No cardiomegaly. Bones/joints: Unremarkable. IMPRESSION: No acute findings.
--- NOTE | 2022-06-03 16:44 | HMH.EDGENADL ---
Discharge Plan Disposition Patient Disposition: Home, Self-Care Condition: Good Prescriptions Prescriptions: New ondansetron 4 mg tablet,disintegrating 4 mg PO Q6H PRN (Reason: nausea and vomiting) Qty: 30 0RF benzonatate 200 mg capsule 200 mg PO BID Qty: 60 0RF prednisone 50 mg tablet 50 mg PO DAILY 5 Days Qty: 5 0RF No Action aspirin [Adult Low Dose Aspirin] 81 mg tablet,delayed release (DR/EC) 81 mg PO DAILY atorvastatin 80 mg tablet 80 mg PO DAILY Qty: 90 3RF lisinopril 2.5 mg tablet See Rx Instructions .ROUTE .COMPLEX Qty: 90 1RF Dose Instruction: Take 1 tablet by mouth once daily Rx Instructions: Take 1 tablet by mouth once daily metoprolol tartrate 25 mg tablet See Rx Instructions .ROUTE .COMPLEX Qty: 180 1RF Dose Instruction: Take 1 tablet by mouth twice daily Rx Instructions: Take 1 tablet by mouth twice daily Referrals Follow up/Referrals: Yevgeniy Glover MD [Primary Care Provider] - See instructions Clinical Impressions Clinical Impression: Cough, Acute bronchitis, Nausea & vomiting Instructions Patient Instructions: DI for Diarrhea and Traveler's Diarrhea -- Adult, DI for Diarrhea and Traveler's Diarrhea -- Child, DI for Nausea -- Adult, DI for Nausea -- Child Discharge ED Provider: Ernie Madrid Adult HPI General Chief complaint: Nausea/Vomiting/Diarrhea Stated complaint: cough,vomiting Time Seen by Provider: 06/03/22 16:35 Mode of Arrival: Ambulatory History of Present Illness HPI narrative: 57-year-old male, past medical history of CAD, tobacco use, hypertension, hyperlipidemia. Presents to the emergency department with complaints of nausea, vomiting, anorexia, inability to keep down p.o. intake including solids and liquids since [place] or approximately 10 days. There is been associated 15 pound weight loss over that time period as well. He also states that over the last days developed cough that has progressed from thinnish secretions to thicker and yellow sputum. Reports some subjective fevers, denies chills, abdominal pain, diarrhea, chest pain. He has not had medicine for nausea or vomiting is not received any treatment for the cough thus far. States he took a home COVID test couple of days ago which had a faint positive on however took 1 today which was negative. Related Data Home Medications Medication Instructions Recorded Confirmed aspirin 81 mg tablet,delayed 81 mg PO DAILY 06/25/20 12/29/21 release (Adult Low Dose Aspirin) Previous Rx's Medication Instructions Recorded atorvastatin 80 mg tablet 80 mg PO DAILY #90 tabs 07/14/21 lisinopril 2.5 mg tablet See Rx Instructions .Route 12/17/21 .COMPLEX #90 tabs metoprolol tartrate 25 mg tablet See Rx Instructions .Route 05/25/22 .COMPLEX #180 tabs benzonatate 200 mg capsule 200 mg PO BID #60 caps 06/03/22 ondansetron 4 mg disintegrating 4 mg PO Q6H PRN nausea and 06/03/22 tablet vomiting #30 tabs prednisone 50 mg tablet 50 mg PO DAILY 5 days #5 tabs 06/03/22 Allergies Allergy/AdvReac Type Severity Reaction Status Date / Time No Known Allergies Allergy Verified 12/29/21 09:41 [facility] Disclaimer: The information contained in this section may have been updated after the patient was seen, as this information can be updated by other users. Medical History CAD (coronary artery disease) HHD (hypertensive heart disease) HLD (hyperlipidemia) Tobacco abuse Social History Smoking Status: Current every day smoker tobacco type: cigarettes packs per day: 1 second hand exposure: No alcohol intake: current substance use type: denies use current occupational status: employed Travel in the last 8 weeks: Inside the [place] household members: spouse housing: apartment current occupation: [employer] current occupation
--- NOTE | 2022-06-03 16:56 | PC.NURSE ---
rad at [facility] for portable xray
[2022-06-03 17:11] LABS: Coronavirus 19, PCR Not Detected (NotDetected); Influenza A, PCR Not Detected (NotDetected); Influenza B, PCR Not Detected (NotDetected)
[2022-06-03 17:13] LABS: Basophils # 0.1 K/mm3 (0-0.2); Basophils % 0.5 % (0.1-2.0); Eosinophils # 0.1 K/mm3 (0.0-0.4); Eosinophils % 0.9 % (0.1-12.0); Hematocrit 45.6 % (42.0-52.0); Hemoglobin 15.3 g/dL (14.1-18.0); Lymphocytes % 12.9 % (10-50); Mean Corpuscular HGB Conc 33.5 g/dL (31.8-35.4); Mean Corpuscular Hemoglobin 30.5 pg (27.0-31.2); Mean Platelet Volume 7.6 fl (7.4-10.4); Monocytes # 1.1 K/mm3 (0.1-1.0); Monocytes % 7.1 % (1.7-9.3); Neutrophils # 12.1 K/mm3 (1.8-7.8); Neutrophils % 78.5 % (37.0-80.0); Platelet Count 336 K/mm3 (142-424); Red Blood Count 5.01 M/mm3 (4.60-6.20); Red Cell Distribution Width 12.9 % (11.5-17.5); White Blood Count 15.4 K/mm3 (4.8-10.8)
[2022-06-03 17:15] LABS: MANUAL DIFFERENTIAL MANUAL DIFFERENTIAL (MANUAL DIFF)
[2022-06-03 17:30] VITALS: BP 107/64; PULSE 66; O2SAT 98
[2022-06-03 17:42] LABS: Eosinophils % 1 % (0-3); Lymphocytes % 18 % (10-50); Monocytes % 2 % (2-9); Neutrophils % 79 % (42-76); Platelet Estimate Normal; RBC Morphology Normal; Total Cells Counted 100
[2022-06-03 18:00] VITALS: BP 114/63; PULSE 61; RESP 20; O2SAT 96
[2022-06-03 18:03] LABS: Chloride 101 mmol/L (98-107)
[2022-06-03 18:04] LABS: Potassium 3.8 mmoL/L (3.5-5.1); Sodium 137 mmol/L (136-145)
[2022-06-03 18:06] LABS: Alanine Aminotransferase 21 U/L (12-78); Albumin/Globulin Ratio 1.1 (1.1-1.8); Alkaline Phosphatase 84 U/L (38-126); Anion Gap 11.8 mEq/L (5-15); Aspartate Amino Transferase 32 U/L (17-59); Bilirubin,Total 0.7 mg/dl (0.2-1.3); Blood Urea Nitrogen 10 mg/dl (9-20); Calcium 8.7 mg/dl (8.4-10.2); Carbon Dioxide 28 mmol/L (22.0-30.0); Creatinine Clearance Estimated 133 mL/min (50-200); Estimated Glomerular Filt Rate 116 ml/min (>60); GFR (African American) 141 ML/MIN (>60); Globulin 3.7 g/dL (1.3-3.2); Glucose 85 mg/dl (74-100); Total Protein,Serum 7.7 g/dl (6.3-8.2)
[2022-06-03 18:07] LABS: Magnesium 1.8 mg/dl (1.6-2.3)
[2022-06-03 18:30] VITALS: BP 111/67; PULSE 67; RESP 18; O2SAT 99
[2022-06-03 19:02] VITALS: BP 111/67; PULSE 67; RESP 18; TEMP 37.4; O2SAT 99
[2022-06-03 19:10] LABS: Procalcitonin 0.052 ng/mL (0.0-2.0)
== END 2022-06-03 19:02 | disposition home or self-care (01) ==
PROVIDERS: Emergency Provider Emergency Medicine; PCP Emergency Medicine
DX: J20.9 Acute bronchitis, unspecified (principal); R11.2 Nausea with vomiting, unspecified; I25.10 Atherosclerotic heart disease of native coronary artery without angina pectoris; F17.210 Nicotine dependence, cigarettes, uncomplicated; I10 Essential (primary) hypertension; E78.5 Hyperlipidemia, unspecified; Z20.822 Contact with and (suspected) exposure to COVID-19
CPT/HCPCS: 71045; 80053; 83735; 84145; 85007; 85025; 96361; 96374; 99285; C9803; U0003; U0005

== ENCOUNTER → 2023-01-01 08:31 | Outpatient (CLI) | payer BC, SELFPAY ==
[2023-01-01 08:52] LABS: Basophils % 0.5 % (0.1-2.0); Eosinophils # 0.2 K/mm3 (0.0-0.4); Eosinophils % 1.6 % (0.1-12.0); Hematocrit 49.7 % (42.0-52.0); Hemoglobin 16.4 g/dL (14.1-18.0); Lymphocytes # 1.9 K/mm3 (0.7-4.5); Lymphocytes % 21.5 % (10-50); Mean Corpuscular Hemoglobin 29.9 pg (27.0-31.2); Mean Corpuscular Volume 90.7 fl (80-94); Mean Platelet Volume 7.4 fl (7.4-10.4); Monocytes # 0.6 K/mm3 (0.1-1.0); Monocytes % 7.1 % (1.7-9.3); Neutrophils # 6.2 K/mm3 (1.8-7.8); Neutrophils % 69.3 % (37.0-80.0); Platelet Count 169 K/mm3 (142-424); Red Blood Count 5.48 M/mm3 (4.60-6.20); Red Cell Distribution Width 13.3 % (11.5-17.5)
[2023-01-01 10:02] LABS: Alanine Aminotransferase 25 U/L (12-78); Albumin Level 4.1 g/dl (3.5-5.0); Alkaline Phosphatase 93 U/L (38-126); Anion Gap 11.4 mEq/L (5-15); Aspartate Amino Transferase 30 U/L (17-59); Bilirubin,Indirect 0.3 mg/dL (0.0-0.9); Bilirubin,Total 0.3 mg/dl (0.2-1.3); Bilirubin,Unconjugated 0.5 mg/dL (0.0-1.1); Blood Urea Nitrogen 23 mg/dl (9-20); Calcium 9.2 mg/dl (8.4-10.2); Carbon Dioxide 27 mmol/L (22.0-30.0); Chloride 108 mmol/L (98-107); Chol/HDL Ratio 3.4 (1-3.5); Cholesterol 126 mg/dl (140-200); Estimated Glomerular Filt Rate 100 ml/min (>60); GFR (African American) 121 ML/MIN (>60); Glucose 110 mg/dl (74-100); HDL Cholesterol 37 mg/dl (40-60); Potassium 4.4 mmoL/L (3.5-5.1); Sodium 142 mmol/L (136-145); Total Protein,Serum 6.8 g/dl (6.3-8.2); Triglycerides 61 mg/dl (30-150); VLDL Cholesterol 12 mg/dL (0-40)
[2023-01-01 10:13] LABS: Direct LDL Cholesterol 73.49 mg/dL (100-129)
[2023-01-01 10:18] LABS: Free T4 (Free Thyroxine) 0.71 ng/dl (0.78-2.19)
[2023-01-01 10:33] LABS: Thyroid Stimulating Hormone 1.96 uIU/mL (0.465-4.68)
== END ==
PROVIDERS: PCP Emergency Medicine; Visit Provider Nurse Practitioner Family
DX: I25.10 Atherosclerotic heart disease of native coronary artery without angina pectoris (principal); I11.9 Hypertensive heart disease without heart failure; E78.5 Hyperlipidemia, unspecified; Z72.0 Tobacco use; Z79.899 Other long term (current) drug therapy
CPT/HCPCS: 36415; 80048; 80061; 80076; 83735; 84439; 84443; 85025

== ENCOUNTER 2023-07-26 16:52 | Emergency (ER) | payer BC, SELFPAY ==
[2023-07-26 16:54] VITALS: BP 137/72; PULSE 70; RESP 18; TEMP 36.9; O2SAT 95; BMI 25.3
--- NOTE | 2023-07-26 17:01 | ED_ITS ---
Discharge Plan Disposition Patient Disposition: Home, Self-Care Condition: Good Prescriptions Prescriptions: New prednisone 50 mg tablet 50 mg PO DAILY 5 Days Qty: 5 0RF albuterol sulfate 90 mcg/actuation HFA aerosol inhaler 2 inh inhalation Q4H PRN (Reason: shortness of breath or wheezing) Qty: 8.5 0RF tamsulosin 0.4 mg capsule 0.4 mg PO HS Qty: 30 0RF No Action aspirin [Adult Low Dose Aspirin] 81 mg tablet,delayed release (DR/EC) 81 mg PO DAILY metoprolol tartrate 25 mg tablet See Rx Instructions .ROUTE .COMPLEX Qty: 180 1RF Dose Instruction: Take 1 tablet by mouth twice daily Rx Instructions: Take 1 tablet by mouth twice daily atorvastatin 80 mg tablet See Rx Instructions .ROUTE .COMPLEX Qty: 90 1RF Dose Instruction: Take 1 tablet by mouth once daily Rx Instructions: Take 1 tablet by mouth once daily lisinopril 2.5 mg tablet See Rx Instructions .ROUTE .COMPLEX Qty: 90 4RF Dose Instruction: Take 1 tablet by mouth once daily Rx Instructions: Take 1 tablet by mouth once daily Referrals Follow up/Referrals: Erik Garza DO [Primary Care Provider] - See instructions Erik Kelsey MD [Staff Physician] - See instructions Dawit Akins DO [Staff Physician] - See instructions Edilma Millard MD [Physician] - See instructions Activity Restrictions/Add. Instructions Additional Instructions/Restrictions: I have given you phone numbers for both urology and pulmonology. Please call in the morning to make the appointment. I have called in medications to your pharmacy. Please return to the emergency department for any worsening or change in your symptoms. I have also made a referral for a primary care physician. Clinical Impressions Clinical Impression: Urinary hesitancy COPD (chronic obstructive pulmonary disease) Qualifiers: COPD type: COPD with acute exacerbation Qualified Code(s): J44.1 - Chronic obstructive pulmonary disease with (acute) exacerbation Discharge ED Provider: Arlet Kaye General Adult HPI <RAJ Gillespie - Last Filed: 07/26/23 21:14> General Chief complaint: Urogenital-Male Stated complaint: back pain, abd pain, cough rosalina Time Seen by Provider: 07/26/23 17:01 History of Present Illness HPI narrative: Patient is a 58-year-old male who presents with acute difficulty with urination, specifically starting urination. This is new for him. Patient denies any pain with urination chest pain shortness of breath fever chills hemoptysis hematochezia melena nausea vomiting diarrhea hematuria. Patient additionally reports a cough for duration longer than 1 month that is nonproductive. Patient is a 1 pack-a-day smoker. Patient does not have a primary care physician. He does follow with cardiology. Related Data Home Medications Medication Instructions Recorded Confirmed aspirin 81 mg tablet,delayed 81 mg PO DAILY 06/25/20 06/30/23 release (Adult Low Dose Aspirin) Previous Rx's Medication Instructions Recorded metoprolol tartrate 25 mg tablet See Rx Instructions .Route 11/24/22 .COMPLEX #180 tabs atorvastatin 80 mg tablet See Rx Instructions .Route 01/26/23 .COMPLEX #90 tabs lisinopril 2.5 mg tablet See Rx Instructions .Route 06/27/23 .COMPLEX #90 tabs albuterol sulfate 90 mcg/actuation 2 inh inhalation Q4H PRN shortness 07/26/23 aerosol inhaler of breath or wheezing #8.5 grams prednisone 50 mg tablet 50 mg PO DAILY 5 days #5 tabs 07/26/23 tamsulosin 0.4 mg capsule 0.4 mg PO HS #30 caps 07/26/23 Allergies Allergy/AdvReac Type Severity Reaction Status Date / Time No Known Allergies Allergy Verified 06/30/23 09:27 [facility] <RAJ Gillespie - Last Filed: 07/26/23 21:14> [facility] Disclaimer: The information contained in this section may have been updated after the patient was seen, as this information can be updated by other users. Medical History CAD (coronary artery disease) HHD (hypertensive heart disease) HLD (hyperlipidemia) Tobacco abuse Social History Smoking Status: Current every day smoker tobacco type: cigarettes packs per day: 1 second hand exposure: No alcohol intake: current substance use type: denies use current occupational status: employed Travel in the last 8 weeks: Inside the [place] household members: spouse housing: apartment current occupation: [employer] current occupational exposures/hazards: Yes caffeine: Yes <RAJ Gillespie - Last Filed: 07/26/23 21:14> ROS Obtained: Yes Systems reviewed as appropriate & no additional complaints except as documented Physical Exam <RAJ Gillespie - Last Filed: 07/26/23 21:14> General General appearance: alert and in no apparent distress Head Head exam: atraumatic and normal inspection Eye Eye exam: Present normal appearance, PERRL and EOMI ENT ENT exam: Present normal exam, normal oropharynx and mucous membranes moist Neck Neck exam: Present normal inspection, full ROM and trachea midline; Absent lymphadenopathy Chest Chest inspection: Present normal inspection and symmetric chest wall rise Respiratory Respiratory exam: Present normal lung sounds bilaterally and other (Patient has wet bronchial sounds and a wet bronchial cough along with coarse rhonchi diffusely throughout all mckee); Absent respiratory distress or accessory muscle use Cardiovascular Cardiovascular exam: Present regular rate, normal rhythm, normal heart sounds, +S1 and +S2 Abdominal Exam Abdominal exam: Present soft, tenderness (Patient has slight tenderness to palpation in the lower quadrants but no rebound or guarding or rigidity. No specific suprapubic tenderness.) and normal bowel sounds; Absent guarding or rebound Extremities Exam Extremities exam: Present normal inspection and full ROM Neurological Exam Neurological exam: Present alert, oriented X3 and CN II-XII intact Psychiatric Psychiatric exam: Present normal affect and normal mood Skin Skin exam: Present warm, dry and normal color Lymphatic Lymphatic Findings: no adenopathy Medical Decision Making <RAJ Gillespie - Last Filed: 07/26/23 21:14> Medical Records Medical records reviewed: Yes I reviewed the patient's medical records. Alvaro Inquiry Pt receiving controlled substance: No Vital Signs: 07/26/23 16:54 07/26/23 17:03 07/26/23 17:31 Temperature 98.4 F Temperature Source Oral Pulse Rate 68 67 Pulse Rate [Right] 70 Respiratory Rate 18 Blood Pressure 137/72 123/72 Blood Pressure [Right Arm] 137/72 Blood Pressure Mean 89 Blood Pressure Mean [Right Arm] 93 Blood Pressure Source Blood Pressure Source [Right Arm] Automatic Cuff Blood Pressure Position 02 Sat by Pulse Oximetry 95 96 98 Oxygen Delivery Method Room Air Room Air 07/26/23 18:00 07/26/23 20:19 Temperature 98.3 F Temperature Source Oral Pulse Rate 68 65 Pulse Rate [Right] Respiratory Rate 17 Blood Pressure 111/65 111/65 Blood Pressure [Right Arm] Blood Pressure Mean 80 Blood Pressure Mean [Right Arm] Blood Pressure Source Automatic Cuff Blood Pressure Source [Right Arm] Blood Pressure Position Sitting 02 Sat by Pulse Oximetry 98 Oxygen Delivery Method Room Air Room Air Lab Data Lab results reviewed: Yes I reviewed the patient's lab results. Lab Results 07/26/23 17:00: Urine Color Yellow, Urine Appearance Clear, Urine pH 6.0, Ur Specific Sullivan 1.025, Urine Protein Negative, Urine Glucose (UA) Negative, Urine Ketones Negative, Urine Blood Negative, Urine Nitrate Negative, Urine Bilirubin Negative, Urine Urobilinogen 0.2, Ur Leukocyte Esterase Negative, Urine RBC None, Urine WBC Occasional, Ur Squamous Epith Cells Occasional, Urine Bacteria 1+ 07/26/23 18:03: WBC 11.7 H, RBC 4.89, Hgb 15.0, Hct 46.6, MCV 95.4 H, MCH 30.6, MCHC 32.1, RDW 12.9, Plt Count 223, MPV 8.3, Neut % (Auto) 66.9, Lymph % (Auto) 22.8, Ector % (Auto) 6.7, Eos % (Auto) 3.3, Baso % (Auto) 0.4, Neut # (Auto) 7.8, Lymph # (Auto) 2.7, Ector # (Auto) 0.8, Eos # (Auto) 0.4, Baso # (Auto) 0.0, Sodium 137, Potassium 3.7, Chloride 101, Carbon Dioxide 30, Anion Gap 9.7, BUN 14, Creatinine 0.70, Estimated Creat Clear 138, Estimated GFR 116, Est GFR ( Amer) 140, Glucose 96, Lactate 0.6 L, Calcium 8.7, Total Bilirubin 0.5, AST 29, ALT 23, Alkaline Phosphatase 102, Total Protein 6.8, Albumin 3.7, Globulin 3.1, Albumin/Globulin Ratio 1.2, Procalcitonin 0.051 07/26/23 18:15: VBG pH 7.43 H, VBG pCO2 41.5, VBG pO2 61.3 H, VBG HCO3 27.2, VBG Total CO2 28.5 H, VBG O2 Saturation 92.5 H, VBG Base Excess 2.9 H 07/26/23 18:03 07/26/23 18:03 Orders (Tests/Meds): ED MEDICATIONS Discontinued Medications Generic Name Dose Route Start Last Admin Trade Name Lanreq PRN Reason Stop Dose Admin Acetaminophen 1,000 mg 07/26/23 17:43 07/26/23 18:16 Acetaminophen 500mg Tab PO 07/26/23 17:44 1,000 mg ONCE ONE Administration Iopamidol 100 ml 07/26/23 18:51 07/26/23 18:54 Iopamidol-370 (76%);100ml Bottle IV 07/26/23 18:52 100 ml ONCE ONE Administration Ketorolac Tromethamine 15 mg 07/26/23 17:43 07/26/23 18:16 Ketorolac 30mg/Ml Vial IV 07/26/23 17:44 15 mg ONCE ONE Administration Sodium Chloride 50 ml 07/26/23 18:51 07/26/23 18:54 0.9 % Sodium Chloride 50 Ml Vial IV 07/26/23 18:52 50 ml ONCE ONE Administration Sodium Chloride 10 ml 07/26/23 18:51 07/26/23 18:54 Sodium Chloride 0.9% 10ml Syr (Rad Only) IV 08/25/23 18:50 10 ml NEEDED PRN Administration Maintain IV Site ORDERS Category Date Time Status CT angio abdomen pelvis Stat Cat Scan 07/26/23 17:38 Completed CTA Chest [CT angio chest PE protocol] Stat Cat Scan 07/26/23 17:38 Completed CBC w/Auto Diff [Complete Blood Count Auto Diff] Stat Lab 07/26/23 18:03 Completed CMP [Comprehensive Metabolic Panel] Stat Lab 07/26/23 18:03 Completed Lactic Acid Stat Lab 07/26/23 18:03 Completed Procalcitonin Stat Lab 07/26/23 18:03 Completed UA [Urinalysis and Microscopic] Stat Lab 07/26/23 17:00 Completed VBG [Venous Blood Gas] Stat RT 07/26/23 18:15 Completed Medical Decision Narrative: In summary patient is a 58 who presents to the emergency department for evaluation of of difficulty with urination and cough greater than 1 month duration. Patient is hemodynamically stable upon arrival, afebrile. Physical exam is remarkable for coarse rhonchi diffusely in all 4 lung mckee and a wet bronchial cough. Patient does not have any CVA tenderness does not have any suprapubic tenderness. Patient does report a history of kidney stones in the past. Differential diagnosis includes viral versus bacterial upper respiratory t ract or lower respiratory tract infection, COPD, BPH with bladder outlet obstruction versus kidney stones. Initial workup will be conducted with hematologic labs CT scan of the chest abdomen pelvis respiratory swab chest x- ray. Initial interventions include breathing treatment Decadron Toradol and acetaminophen. Initial workup reviewed by me shows nonactionable hematologic labs negative swabs and a bland urinalysis. My informal interpretation of the CT scan of the chest abdomen pelvis does not show any acute disease however does show prostatic calcifications and a slightly enlarged prostate without stranding and emphysematous changes of the bilateral lungs. Bladder scan and postvoid res idual did not show any significant urinary retention. Upon repeat evaluation improvement in his cough and was able to void without difficulty prior to discharge. Given this he has shared decision making patient was given referrals to pulmonology and urology and PCP. Patient was given prescriptions for an inhaler and steroids and tamsulosin. Patient advised to return to the ER with any worsening or change in his symptoms. <Arlet Kaye, DO - Last Filed: 07/26/23 22:53> Vital Signs: 07/26/23 16:54 07/26/23 17:03 07/26/23 17:31 Temperature 98.4 F Temperature Source Oral Pulse Rate 68 67 Pulse Rate [Right] 70 Respiratory Rate 18 Blood Pressure 137/72 123/72 Blood Pressure [Right Arm] 137/72 Blood Pressure Mean 89 Blood Pressure Mean [Right Arm] 93 Blood Pressure Source Blood Pressure Source [Right Arm] Automatic Cuff Blood Pressure Position 02 Sat by Pulse Oximetry 95 96 98 Oxygen Delivery Method Room Air Room Air 07/26/23 18:00 07/26/23 20:19 Temperature 98.3 F Temperature Source Oral Pulse Rate 68 65 Pulse Rate [Right] Respiratory Rate 17 Blood Pressure 111/65 111/65 Blood Pressure [Right Arm] Blood Pressure Mean 80 Blood Pressure Mean [Right Arm] Blood Pressure Source Automatic Cuff Blood Pressure Source [Right Arm] Blood Pressure Position Sitting 02 Sat by Pulse Oximetry 98 Oxygen Delivery Method Room Air Room Air Lab Data Lab Results 07/26/23 17:00: Urine Color Yellow, Urine Appearance Clear, Urine pH 6.0, Ur Specific Sullivan 1.025, Urine Protein Negative, Urine Glucose (UA) Negative, Urine Ketones Negative, Urine Blood Negative, Urine Nitrate Negative, Urine Bilirubin Negative, Urine Urobilinogen 0.2, Ur Leukocyte Esterase Negative, Urine RBC None, Urine WBC Occasional, Ur Squamous Epith Cells Occasional, Urine Bacteria 1+ 07/26/23 18:03: WBC 11.7 H, RBC 4.89, Hgb 15.0, Hct 46.6, MCV 95.4 H, MCH 30.6, MCHC 32.1, RDW 12.9, Plt Count 223, MPV 8.3, Neut % (Auto) 66.9, Lymph % (Auto) 22.8, Ector % (Auto) 6.7, Eos % (Auto) 3.3, Baso % (Auto) 0.4, Neut # (Auto) 7.8, Lymph # (Auto) 2.7, Ector # (Auto) 0.8, Eos # (Auto) 0.4, Baso # (Auto) 0.0, Sodium 137, Potassium 3.7, Chloride 101, Carbon Dioxide 30, Anion Gap 9.7, BUN 14, Creatinine 0.70, Estimated Creat Clear 138, Estimated GFR 116, Est GFR ( Amer) 140, Glucose 96, Lactate 0.6 L, Calcium 8.7, Total Bilirubin 0.5, AST 29, ALT 23, Alkaline Phosphatase 102, Total Protein 6.8, Albumin 3.7, Globulin 3.1, Albumin/Globulin Ratio 1.2, Procalcitonin 0.051 07/26/23 18:15: VBG pH 7.43 H, VBG pCO2 41.5, VBG pO2 61.3 H, VBG HCO3 27.2, VBG Total CO2 28.5 H, VBG O2 Saturation 92.5 H, VBG Base Excess 2.9 H Orders (Tests/Meds): ED MEDICATIONS Discontinued Medications Generic Name Dose Route Start Last Admin Trade Name Lanreq PRN Reason Stop Dose Admin Acetaminophen 1,000 mg 07/26/23 17:43 07/26/23 18:16 Acetaminophen 500mg Tab PO 07/26/23 17:44 1,000 mg ONCE ONE Administration Iopamidol 100 ml 07/26/23 18:51 07/26/23 18:54 Iopamidol-370 (76%);100ml Bottle IV 07/26/23 18:52 100 ml ONCE ONE Administration Ketorolac Tromethamine 15 mg 07/26/23 17:43 07/26/23 18:16 Ketorolac 30mg/Ml Vial IV 07/26/23 17:44 15 mg ONCE ONE Administration Sodium Chloride 50 ml 07/26/23 18:51 07/26/23 18:54 0.9 % Sodium Chloride 50 Ml Vial IV 07/26/23 18:52 50 ml ONCE ONE Administration Sodium Chloride 10 ml 07/26/23 18:51 07/26/23 18:54 Sodium Chloride 0.9% 10ml Syr (Rad Only) IV 08/25/23 18:50 10 ml NEEDED PRN Administration Maintain IV Site ORDERS Category Date Time Status CT angio abdomen pelvis Stat Cat Scan 07/26/23 17:38 Completed CTA Chest [CT angio chest PE protocol] Stat Cat Scan 07/26/23 17:38 Completed CBC w/Auto Diff [Complete Blood Count Auto Diff] Stat Lab 07/26/23 18:03 Completed CMP [Comprehensive Metabolic Panel] Stat Lab 07/26/23 18:03 Completed Lactic Acid Stat Lab 07/26/23 18:03 Completed Procalcitonin Stat Lab 07/26/23 18:03 Completed UA [Urinalysis and Microscopic] Stat Lab 07/26/23 17:00 Completed VBG [Venous Blood Gas] Stat RT 07/26/23 18:15 Completed Medical Decision Narrative: In summary patient is a 58 who presents to the emergency department for evaluation of of difficulty with urination and cough greater than 1 month duration. Patient is hemodynamically stable upon arrival, afebrile. Physical exam is remarkable for coarse rhonchi diffusely in all 4 lung mckee and a wet bronchial cough. Patient does not have any CVA tenderness does not have any suprapubic tenderness. Patient does report a history of kidney stones in the past. Differential diagnosis includes viral versus bacterial upper respiratory tract or lower respiratory tract infection, COPD, BPH with bladder outlet obstruction versus kidney stones. Initial workup will be conducted with hematol ogic labs CT scan of the chest abdomen pelvis respiratory swab chest x-ray. Initial interventions include breathing treatment Decadron Toradol and acetaminophen. Initial workup reviewed by me shows nonactionable hematologic labs negative swabs and a bland urinalysis. My informal interpretation of the CT scan of the chest abdomen pelvis does not show any acute disease however does show prostatic calcifications and a slightly enlarged prostate without stranding and emphysematous changes of the bilateral lungs. Bladder scan and postvoid residual did not show any significant urinary retention. Upon repeat evaluation improvement in his cough and was able to void without difficulty prior to d ischarge. Given this he has shared decision making patient was given referrals to pulmonology and urology and PCP. Patient was given prescriptions for an inhaler and steroids and tamsulosin. Patient advised to return to the ER with any worsening or change in his symptoms. I was consulted by the HITESH, and we discussed the complexity of the problems being addressed. I approved the treatment and management plan for this patient's care in the emergency department, thus performing a substantive portion of the medical decision making. Arlet Kaye, DO Critical Care <RAJ Gillespie - Last Filed: 07/26/23 21:14> Critical Care Time Critical Care Time: No
[2023-07-26 17:03] VITALS: BP 137/72; PULSE 68; O2SAT 96
[2023-07-26 17:17] LABS: Microscopic, Urine URINE MICROSCOPIC (MICROSCOPIC)
[2023-07-26 17:22] LABS: Appearance,Urine CLEAR (Clear); Bilirubin,Urine Negative (Negative); Blood, Urine Negative (Negative); Color,Urine YELLOW (Yellow); Glucose,Urine (UA) Negative (Negative); Ketones,Urine Negative (Negative); Leukocyte Esterase,Urine Negative (Negative); Nitrate,Urine Negative (Negative); Protein,Urine Negative (Negative); Specific Gravity, Urine 1.025 (1.005-1.030); Urobilinogen,Urine 0.2 EU/dl (0.2)
[2023-07-26 17:31] VITALS: BP 123/72; PULSE 67; O2SAT 98
--- NOTE | 2023-07-26 17:38 | CT_ITS ---
PROCEDURE INFORMATION: Exam: CTA Abdomen and Pelvis With Contrast Exam date and time: 07/26/2023 6:50 PM Age: 58 years old Clinical indication: Other: Difficulty voiding; Other: Back pain; Additional info: Cough for a month, difficulty voiding, back pain TECHNIQUE: Imaging protocol: Computed tomographic angiography of the abdomen and pelvis with contrast. Exam focused on the arteries. 3D rendering (Not supervised by radiologist): MIP and/or 3D reconstructed images were created by the technologist. Radiation optimization: All CT scans at this facility use at least one of these dose optimization techniques: automated exposure control; mA and/or kV adjustment per patient size (includes targeted exams where dose is matched to clinical indication); or iterative reconstruction. Contrast material: ISOVUE; Contrast volume: 100 ml; Contrast route: INTRAVENOUS (IV); COMPARISON: 1. CT ANGIO CHEST PE PROTOCOL 26/07/2023 18:50 2. CR XR CHEST PORTABLE 09/27/2022 17:08 FINDINGS: Aorta: The aorta is normal caliber without focal abnormality. No dissection or aneurysm. Celiac trunk and mesenteric arteries: No occlusion or significant stenosis. Renal arteries: No occlusion or significant stenosis. Right iliac arteries: No occlusion or significant stenosis. Left iliac arteries: No occlusion or significant stenosis. Liver: No mass. Gallbladder and bile ducts: Unremarkable. No calcified stones. No ductal dilation. Pancreas: There is fatty replacement of the pancreas. Spleen: There are multiple calcifications in the spleen most likely reflects small granulomas. Adrenal glands: Unremarkable. No mass. Kidneys and ureters: Unremarkable. No solid mass. No hydronephrosis. Stomach and bowel: There are scattered colonic diverticula without evidence for active diverticulitis. Appendix: No evidence of appendicitis. Intraperitoneal space: Unremarkable. No free air. No significant fluid collection. Lymph nodes: Unremarkable. No enlarged lymph nodes. Urinary bladder: Unremarkable. No mass. Reproductive: Unremarkable as visualized. Bones/joints: No acute fracture. Soft tissues: There is a fat containing right inguinal hernia. Other findings: Please see the dedicated interpretation of the thorax for findings in that region. IMPRESSION: 1. The aorta is normal caliber without focal abnormality. No dissection or aneurysm. 2. No acute inflammatory or obstructive process is identified. Incidental findings are described within the findings section. 3. Please see the dedicated interpretation of the thorax for findings in that region.
--- NOTE | 2023-07-26 17:38 | CT_ITS ---
PROCEDURE INFORMATION: Exam: CTA Chest With Contrast Exam date and time: 07/26/2023 6:50 PM Age: 58 years old Clinical indication: Cough; Additional info: Cough for a month, back pain TECHNIQUE: Imaging protocol: Computed tomographic angiography of the chest with contrast. Exam focused on the arteries. 3D rendering (Not supervised by radiologist): MIP and/or 3D reconstructed images were created by the technologist. Radiation optimization: All CT scans at this facility use at least one of these dose optimization techniques: automated exposure control; mA and/or kV adjustment per patient size (includes targeted exams where dose is matched to clinical indication); or iterative reconstruction. Contrast material: ISOVUE; Contrast volume: 100 ml; Contrast route: INTRAVENOUS (IV); COMPARISON: 1. CR XR CHEST PORTABLE 09/27/2022 17:08 2. CR XR CHEST 2V 14/07/2021 09:24 3. CR CXR2V XR chest 2V 26/10/2017 17:30 FINDINGS: Pulmonary arteries: Normal. No pulmonary emboli. Aorta: The aorta is normal caliber without focal abnormality. No dissection or aneurysm. There is atherosclerotic disease of the visualized aorta and its major branch vessels. Thyroid: There is heterogeneity of the thyroid gland for which nonemergent thyroid ultrasound should be considered. Lungs: There are scattered calcified granulomas in the lungs which most likely reflect prior granulomatous disease. There are scattered areas of emphysema throughout the lungs. Scattered areas of bronchial wall thickening which are likely chronic inflammatory. A few areas of subpleural reticulation are noted, nonspecific. Pleural spaces: Unremarkable. No pneumothorax. No pleural effusion. Heart: Unremarkable. No cardiomegaly. No pericardial effusion. Coronary arteries: There is moderate coronary atherosclerotic disease/calcification although evaluation is limited secondary to the non gated nature of the study. Lymph nodes: There are calcified mediastinal lymph nodes likely reflecting prior granulomatous disease. There are mildly prominent mediastinal lymph nodes which are nonenlarged. Intraperitoneal space: Please see the dedicated interpretation of abdomen and pelvis for findings in that region. Bones/joints: There is diffuse degenerative disease of the visualized osseous structures. Soft tissues: Unremarkable. Other findings: Motion artifact mildly limits evaluation. IMPRESSION: 1. The aorta is normal caliber without focal abnormality. No dissection or aneurysm. 2. Please see the dedicated interpretation of abdomen and pelvis for findings in that region. 3. There is heterogeneity of the thyroid gland for which nonemergent thyroid ultrasound should be considered. COMMENTS: The presence of pulmonary emphysema on CT is an independent risk factor for lung cancer. In the absence of a history or active diagnosis of lung cancer, it is recommended that this patient with emphysema be evaluated for enrollment in a low dose CT lung cancer screening program.
[2023-07-26 17:42] LABS: Bacteria,Urine 1+ /lpf; Squamous Epithelial Cell,Urine Occasional #/hpf (0-5); WBC,Urine Occasional #/hpf (0-3)
[2023-07-26 18:00] VITALS: BP 111/65; PULSE 68; O2SAT 98
--- NOTE | 2023-07-26 18:14 | PC.NURSE ---
bladder scan before void shows 188ml, Gregory and aware
--- NOTE | 2023-07-26 18:15 | PC.NURSE ---
respiratory aware of VBG order and blood in lab
[2023-07-26] MEDS: ACETAMINOPHEN 500MG TAB 1000 MG PO (18:16)
[2023-07-26] MEDS: KETOROLAC 30MG/ML VIAL 15 MG IV (18:16)
--- NOTE | 2023-07-26 18:22 | PC.NURSE ---
after voiding no urine seen with bladder scanner at this time, pt states that he had no trouble using the bathroom this time. at bs, Don notified as well
[2023-07-26 18:23] LABS: VBG Base Excess 2.9 mmol/L (-2.4-2.3); VBG HCO3 27.2 mmol/L (23-30); VBG Oxygen Saturation 92.5 % (50-70); VBG PCO2 41.5 mmol/L (35-51); VBG PH 7.43 mmol/L (7.31-7.41); VBG PO2 61.3 mmol/L (28-40); VBG Total CO2 28.5 mmol/L (23-27)
[2023-07-26 18:29] LABS: Alanine Aminotransferase 23 U/L (12-78); Albumin Level 3.7 g/dl (3.5-5.0); Albumin/Globulin Ratio 1.2 (1.1-1.8); Alkaline Phosphatase 102 U/L (38-126); Anion Gap 9.7 mEq/L (5-15); Aspartate Amino Transferase 29 U/L (17-59); Bilirubin,Total 0.5 mg/dl (0.2-1.3); Blood Urea Nitrogen 14 mg/dl (9-20); Calcium 8.7 mg/dl (8.4-10.2); Carbon Dioxide 30 mmol/L (22.0-30.0); Chloride 101 mmol/L (98-107); Creatinine Clearance Estimated 138 mL/min (50-200); Estimated Glomerular Filt Rate 116 ml/min (>60); GFR (African American) 140 ML/MIN (>60); Globulin 3.1 g/dL (1.3-3.2); Glucose 96 mg/dl (74-100); Potassium 3.7 mmoL/L (3.5-5.1); Sodium 137 mmol/L (136-145); Total Protein,Serum 6.8 g/dl (6.3-8.2)
[2023-07-26 18:30] LABS: Basophils % 0.4 % (0.1-2.0); Eosinophils # 0.4 K/mm3 (0.0-0.4); Eosinophils % 3.3 % (0.1-12.0); Hematocrit 46.6 % (42.0-52.0); Lymphocytes # 2.7 K/mm3 (0.7-4.5); Lymphocytes % 22.8 % (10-50); Mean Corpuscular HGB Conc 32.1 g/dL (31.8-35.4); Mean Corpuscular Hemoglobin 30.6 pg (27.0-31.2); Mean Corpuscular Volume 95.4 fl (80-94); Mean Platelet Volume 8.3 fl (7.4-10.4); Monocytes # 0.8 K/mm3 (0.1-1.0); Monocytes % 6.7 % (1.7-9.3); Neutrophils # 7.8 K/mm3 (1.8-7.8); Neutrophils % 66.9 % (37.0-80.0); Platelet Count 223 K/mm3 (142-424); Red Blood Count 4.89 M/mm3 (4.60-6.20); Red Cell Distribution Width 12.9 % (11.5-17.5); White Blood Count 11.7 K/mm3 (4.8-10.8)
[2023-07-26 18:35] LABS: Lactic Acid 0.6 mmol/L (0.7-2.1)
[2023-07-26 18:52] LABS: Procalcitonin 0.051 ng/mL (0.0-2.0)
[2023-07-26] MEDS: SODIUM CHLORIDE 0.9% 10ML SYR (RAD ONLY) 10 ML IV (18:54)
[2023-07-26] MEDS: 0.9 % SODIUM CHLORIDE 50 ML VIAL IV (18:54)
[2023-07-26] MEDS: IOPAMIDOL-370 (76%);100ML BOTTLE 100 ML IV (18:54)
[2023-07-26 20:19] VITALS: BP 111/65; PULSE 65; RESP 17; TEMP 36.8; O2SAT 98
== END 2023-07-26 20:19 | disposition home or self-care (01) ==
PROVIDERS: Physician Assistant; Emergency Provider Emergency Medicine; PCP Internal Medicine
DX: J44.1 Chronic obstructive pulmonary disease with (acute) exacerbation (principal); R39.11 Hesitancy of micturition; R05.9 Cough, unspecified; I11.9 Hypertensive heart disease without heart failure; I25.10 Atherosclerotic heart disease of native coronary artery without angina pectoris; E78.5 Hyperlipidemia, unspecified; F17.210 Nicotine dependence, cigarettes, uncomplicated
CPT/HCPCS: 71275; 74174; 80053; 81001; 82803; 83605; 84145; 85025; 96374; 99285; Q9967

== ENCOUNTER 2023-07-28 22:20 | Outpatient (CLI) | payer BC, SELFPAY ==
[2023-07-28 20:12] LABS: Free T4 (Free Thyroxine) 1.06 ng/dl (0.78-2.19)
[2023-07-28 20:25] LABS: Prostate Specific Ag Screen 1.5 ng/ml (0.0-4.0); Thyroid Stimulating Hormone 0.37 uIU/mL (0.465-4.68)
[2023-07-30 08:20] LABS: Triiodothyronine (T3) Free 2.6 pg/mL (2.0-4.4)
[2023-08-02 10:21] LABS: Triiodothyronine (T3) Reverse 36.4
== END 2023-07-28 23:59 ==
LOC: LAB.DROPOF 22:20
PROVIDERS: PCP Nurse Practitioner Family; Visit Provider Nurse Practitioner Family
DX: R06.09 Other forms of dyspnea (principal); E07.9 Disorder of thyroid, unspecified; R33.9 Retention of urine, unspecified; R39.11 Hesitancy of micturition; J44.9 Chronic obstructive pulmonary disease, unspecified; Z72.0 Tobacco use; Z12.5 Encounter for screening for malignant neoplasm of prostate
CPT/HCPCS: 84439; 84443; 84481; 84482; G0103

== ENCOUNTER 2023-08-11 12:33 | Outpatient (CLI) | payer BC, SELFPAY ==
[2023-08-11] MEDS: ALBUTEROL 0.083% 2.5 MG/3 ML NEB IH (13:25)
--- NOTE | 2023-08-11 13:50 | US_ITS ---
FINAL REPORT TECHNIQUE: Limited sonographic images of the thyroid were obtained. CLINICAL HISTORY: Abnormal CT FINDINGS: The right lobe of the thyroid measures 3.9 x 1.4 by 0.9 cm. There is a solid, hypoechoic nodule measuring 4 x 3 x 3 mm consistent with TI-RADS category 4. There is a solid, isoechoic nodule measuring 8 x 7 x 5 mm consistent with TI-RADS category 3. The left lobe of the thyroid measures 4.7 x 1.4 x 2.2 cm. There is a dominant nodule in the upper left thyroid which is solid and isoechoic measuring 24 x 21 x 15 mm consistent with TI-RADS category 3. The isthmus measures 3 mm. IMPRESSION: Bilateral thyroid nodules. Recommend 6 month follow-up for the dominant nodule on the left. Reviewed, Interpreted and Dictated by João Waters III, MD Transcribed by cEho Woodard Authenticated and [facility]
== END 2023-08-11 23:59 ==
PROVIDERS: PCP Nurse Practitioner Family; Visit Provider Nurse Practitioner Family
DX: R06.02 Shortness of breath (principal); E07.9 Disorder of thyroid, unspecified; R94.6 Abnormal results of thyroid function studies
CPT/HCPCS: 76536; 94060; 94618

== ENCOUNTER 2023-09-26 10:13 | Outpatient (CLI) | payer BC, SELFPAY ==
[2023-09-27 14:11] LABS: Prostate Specific Ag 1.5 ng/mL (0.0-4.0)
== END 2023-09-26 23:59 | disposition home or self-care (01) ==
LOC: LAB 10:13
PROVIDERS: PCP Nurse Practitioner Family; Visit Provider Urology
DX: N40.0 Benign prostatic hyperplasia without lower urinary tract symptoms (principal)
CPT/HCPCS: 36415; 84153; 84154

== ENCOUNTER 2023-12-29 09:20 | Outpatient (CLI) | payer BC, SELFPAY ==
[2023-12-29 10:22] LABS: Alanine Aminotransferase 26 U/L (12-78); Albumin Level 3.8 g/dl (3.5-5.0); Alkaline Phosphatase 91 U/L (38-126); Aspartate Amino Transferase 31 U/L (17-59); Bilirubin,Indirect 0.5 mg/dL (0.0-0.9); Bilirubin,Total 0.5 mg/dl (0.2-1.3); Bilirubin,Unconjugated 0.5 mg/dL (0.0-1.1); Chol/HDL Ratio 3.3 (1-3.5); Cholesterol 130 mg/dl (140-200); HDL Cholesterol 39 mg/dl (40-60); Total Protein,Serum 6.5 g/dl (6.3-8.2); Triglycerides 61 mg/dl (30-150); VLDL Cholesterol 12 mg/dL (0-40)
[2023-12-29 10:53] LABS: Direct LDL Cholesterol 77.93 mg/dL (100-129)
== END 2023-12-29 23:59 | disposition home or self-care (01) ==
LOC: LAB 09:21
PROVIDERS: PCP Nurse Practitioner Family; Visit Provider Nurse Practitioner Family
DX: E78.5 Hyperlipidemia, unspecified (principal); I11.9 Hypertensive heart disease without heart failure
CPT/HCPCS: 36415; 80061; 80076

== ENCOUNTER 2024-07-09 07:47 | Outpatient (CLI) | payer OTHER, SELFPAY ==
--- NOTE | 2024-07-09 07:52 | CA_ITS ---
APPROVED REPORT EXAM: Comprehensive 2D, Doppler, and color-flow Echocardiogram Casing Finisher And Stuffer: Denise Tran RVT Ht: 6 ft 0 in Wt: 196lbs BSA: 2.11 BP: 140/71 mmHg Indications: CAD,COPD,HTN,HLD,SMOKER 2D Dimensions LA Volume 37.60 mL LA Volume Index 17.82 mL/m2 (M/F) 16-34 M-Mode Dimensions RVDd 2.57 cm (0.9-2.6) LA Diam 3.15 cm (1.9-4.0) LVDd 4.58 cm (3.5-5.7) LVDs 3.13 cm (3.5-5.7) IVSd 0.52 cm (0.6-1.1) PWd 0.84 cm (0.6-1.1) EF (Teich) 59.70% FS 31.70% EDV (Teich) 96.30 mL TAPSE 3.36 (<1.7) ESV (Teich) 38.80 mL LV Diastology E Decel Time 150 (160-240 msec) E/A Ratio 1.3 Aortic Valve JANIA Index 1.31 cm2/m2 AoV Peak Seven. 126.0 (50-130 cm/s) AO Peak GR. 6.30 mmHg AO Mean GR. 3.10 (<5 mmHg) AO VTI 31.4 (18-25 cm) JANIA (VTI) 2.83 (2.5-4.5 cm2) Mitral Valve MV E Max Seven. 79.0 (40-130 cm/s) MV A Velocity 59.0 (40-130 cm/s) E/A Ratio 1.34 MV PHT 44.0 ms Pulmonary Valve PV Peak Velocity 75.0 (50-150 cm/s) Tricuspid Valve TR P. Velocity 211.00 cm/s RAP Estimate 10.00 mmHg RVSP 27.90 mmHg Left Ventricle The left ventricle is normal size. The left ventricular systolic function is normal. The left ventricular ejection fraction is within the normal range. There is normal left ventricular wall thickness. There is normal LV segmental wall motion. The left ventricular diastolic function is normal. LVEF is 55%. Right Ventricle The right ventricle is normal size. The right ventricular systolic function is normal. Atria The left atrium size is normal. The right atrium size is normal. There is no Doppler evidence of interatrial shunt. Aortic Valve The aortic valve opens well. There is no aortic valvular stenosis. No aortic regurgitation is present. Mitral Valve The mitral valve is normal in structure. No evidence of mitral valve stenosis. Trace mitral regurgitation. Tricuspid Valve Tricuspid valve is grossly normal in structure and function. Trace tricuspid regurgitation. There is insufficient TR jet to estimate RVSP. Pulmonic Valve The pulmonary valve is normal in structure. Trace pulmonic regurgitation. Great Vessels The aortic root is normal in size. IVC is normal in size and collapses >50% with inspiration. Pericardium There is no pericardial effusion. Other Information Study Quality: Adequate Conclusion Normal biventricular systolic function. No significant valvular stenosis or regurgitation. Electronically signed by : Annamaria Michael MD 07/15/2024 00:55:12
== END 2024-07-09 23:59 | disposition home or self-care (01) ==
LOC: RT 07:47
PROVIDERS: PCP Nurse Practitioner Family; Visit Provider Nurse Practitioner
DX: I11.9 Hypertensive heart disease without heart failure (principal); I25.10 Atherosclerotic heart disease of native coronary artery without angina pectoris; J44.1 Chronic obstructive pulmonary disease with (acute) exacerbation; E78.2 Mixed hyperlipidemia; F17.210 Nicotine dependence, cigarettes, uncomplicated
CPT/HCPCS: 93306

== ENCOUNTER 2024-12-31 09:21 | Outpatient (CLI) | payer OTHER, SELFPAY ==
[2024-12-31 09:55] LABS: Hematocrit 48.4 % (42.0-52.0); Hemoglobin 15.6 g/dL (14.1-18.0); Immature Granulocytes % 0.5 %; Mean Corpuscular HGB Conc 32.2 g/dL (31.8-35.4); Mean Corpuscular Hemoglobin 30.1 pg (27.0-31.2); Mean Corpuscular Volume 93.4 fl (80-94); Nucleated Red Blood Cells % 0 %; Platelet Count 157 K/mm3 (142-424); Red Blood Count 5.18 M/mm3 (4.60-6.20); Red Cell Distribution Width-SD 48.0 fL; White Blood Count 8.1 K/mm3 (4.8-10.8)
[2024-12-31 10:59] LABS: Free T4 (Free Thyroxine) 0.79 ng/dl (0.78-2.19)
[2024-12-31 11:04] LABS: Alanine Aminotransferase 20 U/L (12-78); Albumin Level 4.1 g/dl (3.5-5.0); Alkaline Phosphatase 80 U/L (38-126); Anion Gap 7.6 mEq/L (5-15); Aspartate Amino Transferase 33 U/L (17-59); Bilirubin,Direct 0.2 mg/dl (0.0-0.4); Bilirubin,Indirect 0.3 mg/dL (0.0-0.9); Bilirubin,Total 0.5 mg/dl (0.2-1.3); Bilirubin,Unconjugated 0.3 mg/dL (0.0-1.1); Blood Urea Nitrogen 16 mg/dl (9-20); Calcium 9.7 mg/dl (8.4-10.2); Carbon Dioxide 28 mmol/L (22.0-30.0); Chloride 106 mmol/L (98-107); Cholesterol 150 mg/dl (140-200); Creatinine,Serum 0.80 mg/dl (0.66-1.25); Estimated Glomerular Filt Rate 99 ml/min (>60); GFR (African American) 120 ML/MIN (>60); Glucose 104 mg/dl (74-100); HDL Cholesterol 43 mg/dl (40-60); Magnesium 1.8 mg/dl (1.6-2.3); Potassium 4.6 mmoL/L (3.5-5.1); Sodium 137 mmol/L (136-145); Total Protein,Serum 6.5 g/dl (6.3-8.2); Triglycerides 53 mg/dl (30-150)
[2024-12-31 11:34] LABS: Thyroid Stimulating Hormone 2.13 uIU/mL (0.465-4.68)
== END 2024-12-31 23:59 | disposition home or self-care (01) ==
LOC: LAB 09:22
PROVIDERS: PCP Nurse Practitioner Family; Visit Provider Nurse Practitioner
DX: I11.9 Hypertensive heart disease without heart failure (principal); I25.10 Atherosclerotic heart disease of native coronary artery without angina pectoris; E07.9 Disorder of thyroid, unspecified
CPT/HCPCS: 36415; 80048; 80061; 80076; 83735; 84439; 84443; 85025

== ENCOUNTER 2025-05-13 08:22 | Outpatient (CLI) | payer OTHER, SELFPAY ==
[2025-05-13 20:03] LABS: Coronavirus 19, PCR Not Detected (NotDetected); Influenza A, PCR Not Detected (NotDetected); Influenza B, PCR Not Detected (NotDetected)
== END 2025-05-13 23:59 | disposition home or self-care (01) ==
LOC: LAB.DROPOF 05-15 08:22
PROVIDERS: PCP Nurse Practitioner Family; Visit Provider Nurse Practitioner
DX: J06.9 Acute upper respiratory infection, unspecified (principal)
CPT/HCPCS: 87631

== ENCOUNTER 2025-05-14 04:32 | Inpatient (IN) | payer OTHER, SELFPAY ==
[2025-05-14] VITALS (50 sets, daily range): BP systolic 60–188; BP diastolic 32–114; PULSE 62–88; RESP 15–35; TEMP 36.3–37.3; O2SAT 88–97; BMI 25.7; BMI 26.0
--- NOTE | 2025-05-14 04:36 | CT_ITS ---
PROCEDURE INFORMATION: Exam: CTA Chest With Contrast Exam date and time: 05/14/2025 5:13 AM Age: 60 years old Clinical indication: Pain; Cough; Chest pressure; Additional info: Cough, chest pain, sycope TECHNIQUE: Imaging protocol: Computed tomographic angiography of the chest with contrast. Exam focused on the arteries. 3D rendering (Not supervised by radiologist): MIP and/or 3D reconstructed images were created by the technologist. Radiation optimization: All CT scans at this facility use at least one of these dose optimization techniques: automated exposure control; mA and/or kV adjustment per patient size (includes targeted exams where dose is matched to clinical indication); or iterative reconstruction. Contrast material: ISOVUE; Contrast volume: 70 ml; Contrast route: INTRAVENOUS (IV); COMPARISON: CT ANGIO CHEST PE PROTOCOL 07/26/2023 6:50 PM FINDINGS: Pulmonary arteries: Normal. No pulmonary emboli. Aorta: Unremarkable. No aortic aneurysm. No aortic dissection. Lungs: Airspace pattern infiltrates seen extends throughout the left upper lobe. Calcified granuloma left lower lobe. Additional calcified granulomas periphery of the right lower lobe. Underlying mild emphysema bilateral upper lobes. No CT evidence of acute pulmonary Pleural spaces: Unremarkable. No pneumothorax. No pleural effusion. Heart: Unremarkable. No cardiomegaly. No pericardial effusion. Coronary arteries: Calcified coronary arteries Lymph nodes: Unremarkable. No enlarged lymph nodes. Spleen: Calcified granulomas are present in the spleen Bones/joints: Unremarkable. No acute fracture. Soft tissues: Unremarkable. IMPRESSION: 1. Left upper lobe pneumonia 2. No CT evidence of acute pulmonary embolus 3. Mild emphysema bilateral upper lobes. 4. Old granulomatous disease. COMMENTS: The presence of pulmonary emphysema on CT is an independent risk factor for lung cancer. In the absence of a history or active diagnosis of lung cancer, it is recommended that this patient with emphysema be evaluated for enrollment in a low dose CT lung cancer screening program.
--- NOTE | 2025-05-14 04:41 | ED_ITS ---
Discharge Plan Disposition Patient Disposition: Admitted Clinical Impressions Clinical Impression: Chest pain, VERONICA (acute kidney injury), Hypomagnesemia Pneumonia Qualifiers: Pneumonia type: due to unspecified organism Laterality: left Lung location: u pper lobe of lung Qualified Code(s): J18.9 - Pneumonia, unspecified organism Respiratory failure with hypoxia Qualifiers: Chronicity: acute Qualified Code(s): J96.01 - Acute respiratory failure with hypoxia Discharge ED Provider: Mina Sen General Adult HPI General Chief complaint: Chest Pain Stated complaint: chest pain Time Seen by Provider: 05/14/25 04:36 Mode of Arrival: Ambulatory Source of Information: Patient Description of Symptoms (Recalled from ER Triage Doc. by RN): chest pain especially with cough History of Present Illness HPI narrative: 60-year-old male history of hypertension, coronary artery disease, COPD presents for chest pain. Reports chest pain is central, worse with cough. He has had a cough for about a week and it is getting worse. He had a negative viral swab yesterday. No vomiting at home. No reported fever. Reports shortness of breath. Shortly prior to arrival, he was walking around his house, heading towards the bathroom, when he had a syncopal episode. Related Data Home Medications ?Medication ?Instructions ?Recorded ?Confirmed aspirin 81 mg tablet,delayed 81 mg PO DAILY 06/25/20 1 07/14/24 release (Adult Low Dose Aspirin) Previous Rx's ?Medication ?Instructions ?Recorded tiotropium 2.5 mcg-olodaterol 2.5 See Rx Instructions .Route 09/24/24 mcg/actuation mist for inhalation .COMPLEX #4 grams (Stiolto Respimat) metoprolol tartrate 25 mg tablet See Rx Instructions . Route 10/16/24 .COMPLEX #180 tabs lisinopril 2.5 mg tablet See Rx Instructions .Route 0 11/21/24 .COMPLEX #90 tabs atorvastatin 80 mg tablet See Rx Instructions .Route 1 06/15/24 .COMPLEX #90 tabs benzonatate 100 mg capsule 100 mg PO TID PRN cough #30 caps 05/13/25 Allergies Allergy/AdvReac Type Severity Reaction Status Date / Time No Known Allergies Allergy Verified 05/13/25 15:03 [facility] Disclaimer: The information contained in this section may have been updated after the patient was seen, as this information can be updated by other users. Medical History (Updated 05/14/25 @ 05:54 by Mina Sen MD) Viral upper respiratory infection Smoking greater than 30 pack years Dyspnea on exertion Granulomatous lung disease Pulmonary emphysema Tobacco abuse HLD (hyperlipidemia) HHD (hypertensive heart disease) CAD (coronary artery disease) Surgical History History of below-elbow amputation of right upper extremity History of neck surgery History of tonsillectomy History of lithotripsy History of heart artery stent Family History Other Heart attack Hypertension Stroke Social History Smoking Status: Current every day smoker tobacco type: cigarettes packs per day: 1 second hand exposure: No alcohol intake: current alcohol intake frequency: holidays/special occasions only substance use type: denies use current occupational status: employed Travel in the last 8 weeks?: None household members: spouse housing: apartment current occupation: [employer] current occupational exposures/hazards: Yes caffeine: Yes Other Medical History Have you received the Flu Vaccine for this season: No Have you received the Pneumonia Vaccine: No ROS Obtained: Yes All systems reviewed & no additional complaints except as documented Physical Exam General General appearance: alert and in no apparent distress Head Head exam: atraumatic and normocephalic Eye Eye exam: Present normal appearance, PERRL and EOMI ENT ENT exam: Present normal oropharynx and normal external ear exam Neck Neck exam: Present normal inspection and full ROM Chest Chest inspection: Present normal inspection and symmetric chest wall rise; Absent tenderness Respiratory Respiratory exam: Present normal lung sounds bilaterally; Absent respiratory distress Cardiovascular Cardiovascular exam: Present regular rate and normal rhythm Abdominal Exam Abdominal exam: Present soft; Absent distention, tenderness or guarding Extremities Exam Extremities exam: Present normal inspection; Absent edema or joint swelling Back Exam Back exam: Present normal inspection; Absent tenderness Neurological Exam Neurological exam: Present alert and oriented X3; Absent motor sensory deficit Psychiatric Psychiatric exam: Present normal affect and normal mood Skin Skin exam: Present warm, dry and normal color Lymphatic Lymphatic Findings: no adenopathy Medical Decision Making Medical Records Medical records reviewed: Yes I reviewed the patient's medical records. Screening: Per USPSTF and CDC recommendations, given the prevalence of disease in our region, it is our hospital?s policy to screen for HIV and viral Hepatitis for all patients aged 18 and over and those with ongoing risk factors. Alvaro Inquiry Pt receiving controlled substance: No Alvaro was queried for this patient: No Vital Signs: 05/14/25 04:34 05/14/25 04:38 05/14/25 04:45 Temperature 98.0 F Temperature Source Oral Pulse Rate 71 69 Pulse Rate [Right Radial] 75 Respiratory Rate 20 31 H 28 H Blood Pressure Blood Pressure [Right Arm] 107/87 L Blood Pressure Mean Blood Pressure Mean [Right Arm] 93 Blood Pressure Source [Right Arm] Automatic Cuff Blood Pressure Position [Right Arm] Supine 02 Sat by Pulse Oximetry 94 L 88 L 91 L Oxygen Delivery Method Room Air 05/14/25 04:48 05/14/25 04:48 Temperature Temperature Source Pulse Rate 71 Pulse Rate [Right Radial] Respiratory Rate 35 H Blood Pressure 130/107 H Blood Pressure [Right Arm] Blood Pressure Mean 115 Blood Pressure Mean [Right Arm] Blood Pressure Source [Right Arm] Blood Pressure Position [Right Arm] 02 Sat by Pulse Oximetry 92 L Oxygen Delivery Method Lab Data Lab results reviewed: Yes I reviewed the patient's lab results. Lab Results 05/14/25 04:33: WBC 17.5 H, RBC 4.96, Hgb 15.4, Hct 46.4, MCV 93.5, MCH 31.0, MCHC 33.2, RDW 13.3, Plt Count 179, MPV 9.8, Neut % (Auto) 88.8 H, Lymph % (Auto) 6.2 L, [place] % (Auto) 2.1, Eos % (Auto) 0.7, Baso % (Auto) 0.4, Neut # (Auto) 15.5 H, Lymph # (Auto) 1.1, [place] # (Auto) 0.4, Eos # (Auto) 0.1, Baso # (Auto) 0.1, Sodium 135 L, Potassium 3.9, Chloride 102, Carbon Dioxide 24, Anion Gap 12.9, BUN 26 H, Creatinine 1.60 H, Estimated Creat Clear 60, Estimated GFR 44 L, Est GFR ( Amer) 54 L, Glucose 147 H, Calcium 9.4, Magnesium 1.2 L, Total Bilirubin 1.6 H, AST 59, ALT 35, Alkaline Phosphatase 68, Troponin I < 0.01, Total Protein 6.7, Albumin 3.8, Globulin 2.9, Albumin/Globulin Ratio 1.3, HCV Ab TAQUERIA w/Rflx PCR Qn Negative 05/14/25 04:33 05/14/25 04:33 Orders (Tests/Meds): ED MEDICATIONS Generic Name Dose Route Start Last Admin Trade Name Yarelis PRN Reason Stop Dose Admin Magnesium Sulfate 2 gm in 50 mls @ 50 mls/hr 05/14/25 05:34 05/14/25 05:39 Magnesium Sulfate 2gm/50ml Premix IV 05/14/25 06:33 50 mls/hr ONCE ONE Administration Levofloxacin/Dextrose 750 mg in 150 mls @ 100 mls/hr 05/14/25 05:45 Levofloxacin 750mg/150ml Premix IV 05/24/25 05:44 Q24H MARIA T Lactated Ringer's 1,000 mls @ 999 mls/hr 05/14/25 06:00 05/14/25 05:53 Lactated Ringer's 1000 Ml Bag IV 05/14/25 07:00 999 mls/hr .Q1H1M MARIA T Administration Sodium Chloride 10 ml 05/14/25 05:51 Sodium Chloride 0.9% 10ml Flush Syringe IV 06/13/25 05:50 NEEDED PRN Maintain IV Site Discontinued Medications Generic Name Dose Route Start Last Admin Trade Name Yarelis PRN Reason Stop Dose Admin Acetaminophen 1,000 mg 05/14/25 04:36 05/14/25 04:50 Acetaminophen 500mg Tab PO 05/14/25 04:37 1,000 mg ONCE ONE Administration Albuterol/Ipratropium 6 ml 05/14/25 05:33 Ipratropium/Albuterol 3 Ml Neb IH 05/14/25 05:34 ONCE ONE Aspirin 324 mg 05/14/25 04:36 05/14/25 04:50 Aspirin 81mg Chewable Tablet PO 05/14/25 04:37 324 mg ONCE ONE Administration Belladonna Alkaloids 60 ml 05/14/25 04:36 05/14/25 04:52 Belladonna Alkaloids 60 Ml Ml PO 05/14/25 04:37 60 ml ONCE ONE Administration Iopamidol 70 ml 05/14/25 05:20 05/14/25 05:22 Iopamidol-370 (76%);100ml Bottle IV 05/14/25 05:21 70 ml ONCE ONE Administration Morphine Sulfate 4 mg 05/14/25 05:40 05/14/25 05:47 Morphine 4mg/Ml Syringe IV 05/14/25 05:41 4 mg ONCE ONE Administration Sodium Chloride 50 ml 05/14/25 05:20 05/14/25 05:23 0.9 % Sodium Chloride 50 Ml Vial IV 05/14/25 05:21 50 ml ONCE ONE Administration Sodium Chloride 10 ml 05/14/25 05:20 05/14/25 05:22 Sodium Chloride 0.9% 10ml Syr (Rad Only) IV 05/14/25 05:21 10 ml ONCE ONE Administration ORDERS Category Date Time Status CT angio chest PE protocol Stat Cat Scan 05/14/25 04:36 Completed CBC w/Auto Diff [Complete Blood Count Auto Diff] Stat Lab 05/14/25 04:33 Completed CMP [Comprehensive Metabolic Panel] Stat Lab 05/14/25 04:33 Completed HIV Combo Routine Lab 05/14/25 04:33 Received Hepatitis C Ab Qual. W/ RFX Routine Lab 05/14/25 04:33 Completed Magnesium Stat Lab 05/14/25 04:33 Completed Troponin I Q3H Lab 05/14/25 04:33 Completed Troponin I Q3H Lab 05/14/25 07:45 Ordered Blood Culture Stat Micro 05/14/25 05:34 Ordered VBG [Venous Blood Gas] Stat RT 05/14/25 05:34 Ordered ECG Data Tracing #1: I reviewed this ECG and interpreted as documented below: Sinus rhythm, no significant ST elevation, no evidence of arrhythmia ECG initial impression date: 05/14/25 ECG initial impression time: 04:33 Tissue Perfus/Sepsis Re-Eval Sepsis Re-Evaluation Performed: Yes Date Performed: 05/14/25 Time Performed: 05:47 HEART Score History (anamnesis): Moderately suspicious ECG: Normal Age: 45-65 years Risk factors: Atherosclerosis history Troponin: </= normal limit HEART Score: 4 Medical Decision Narrative: 60-year-old male with history of coronary artery disease, hypertension, COPD presents for 1 week of cough, worsening chest pain with coughing. History was obtained via interactive discussion with patient, family, chart review. On arrival, patient is [afebrile, hemodynamically stable, satting appropriately, alert, oriented x4, GCS 15], moving all extremities spontaneously. Full physical exam performed and significant for no significant wheezing, no tenderness to palpation Differential includes but is not limited to ACS, PE, COPD, pneumonia, viral infection, cardiac syncope, vasovagal syncope, arrhythmia. Patient was given aspirin, Tylenol, GI cocktail for symptomatic management and correction of underlying abnormalities. Workup initiated including CTA chest, CBC CMP troponin VBG. On re-evaluation, patient has become hypoxic, is not taking breaths. Patient was given incentive spirometer and morphine for pain with inspiration. Started on breathing treatments, though his lungs are clear. Laboratory workup independently interpreted by me and significant for VERONICA with creatinine 1.6, hypomagnesemia with mag 1.2. Leukocytosis with white count of 17, negative initial troponin. Imaging independently interpreted by me and significant for findings consistent with left upper lobe pneumonia. See radiology read for full review of final results. Given patient history, exam and workup, patient's presentation most likely represents acute hypoxic respiratory failure secondary to left sided pneumonia. Patient was initiated on magnesium repletion, 1 L IV fluid repletion (patient does not require full sepsis bolus due to respiratory status), IV antibiotics. Blood cultures were obtained. Interactive discussion was had with the hospitalist on-call for admission. Procedures Risk/Benefits of Procedure(s) Were Explained: Yes Critical Care Critical Care Time Critical Care Time: Yes Attestation: On 05/14/25, the high probability of a clinically significant, sudden or life threatening deterioration of the following system(s) required my full and direct attention, intervention and personal management. The time I documented below is in addition to time spent performing reported procedures but includes the following listed in this critical care notation. Total Time Total Critical Care Time: 40
[2025-05-14 04:48] LABS: Hematocrit 46.4 % (42.0-52.0); Hemoglobin 15.4 g/dL (14.1-18.0); Immature Granulocytes % 1.8 %; Mean Corpuscular HGB Conc 33.2 g/dL (31.8-35.4); Mean Corpuscular Hemoglobin 31.0 pg (27.0-31.2); Mean Corpuscular Volume 93.5 fl (80-94); Nucleated Red Blood Cells % 0 %; Platelet Count 179 K/mm3 (142-424); Red Blood Count 4.96 M/mm3 (4.60-6.20); Red Cell Distribution Width-SD 45.4 fL; White Blood Count 17.5 K/mm3 (4.8-10.8)
[2025-05-14] MEDS: ACETAMINOPHEN 500MG TAB 1000 MG PO (04:50)
[2025-05-14] MEDS: ASPIRIN 81MG CHEWABLE TABLET 324 MG PO (04:50)
[2025-05-14] MEDS: BELLADONNA ALKALOIDS 60 ML ML PO (04:52)
--- NOTE | 2025-05-14 04:53 | PC.NURSE ---
Pt in SR per continuous heart monitor. Skin pink warm and dry Resp full and slightly labored with excertion. Pt has congested sounding cough Gaurding chest with cough. Speech clear and appropriate at bedside Call light in reach
[2025-05-14 04:56] LABS: Magnesium 1.2 mg/dl (1.6-2.3)
[2025-05-14 04:57] LABS: Alanine Aminotransferase 35 U/L (12-78); Albumin Level 3.8 g/dl (3.5-5.0); Albumin/Globulin Ratio 1.3 (1.1-1.8); Alkaline Phosphatase 68 U/L (38-126); Anion Gap 12.9 mEq/L (5-15); Aspartate Amino Transferase 59 U/L (17-59); Bilirubin,Total 1.6 mg/dl (0.2-1.3); Blood Urea Nitrogen 26 mg/dl (9-20); Calcium 9.4 mg/dl (8.4-10.2); Carbon Dioxide 24 mmol/L (22.0-30.0); Chloride 102 mmol/L (98-107); Creatinine Clearance Estimated 60 mL/min (50-200); Creatinine,Serum 1.60 mg/dl (0.66-1.25); Estimated Glomerular Filt Rate 44 ml/min (>60); GFR (African American) 54 ML/MIN (>60); Globulin 2.9 g/dL (1.3-3.2); Glucose 147 mg/dl (74-100); Potassium 3.9 mmoL/L (3.5-5.1); Sodium 135 mmol/L (136-145); Total Protein,Serum 6.7 g/dl (6.3-8.2)
--- NOTE | 2025-05-14 05:08 | PC.NURSE ---
Pt to CT scan via stretcher
[2025-05-14 05:14] LABS: Troponin I < 0.01 ng/ml (0.00-0.034)
[2025-05-14] MEDS: IOPAMIDOL-370 (76%);100ML BOTTLE 70 ML IV (05:22)
[2025-05-14] MEDS: SODIUM CHLORIDE 0.9% 10ML SYR (RAD ONLY) 10 ML IV (05:22)
[2025-05-14] MEDS: 0.9 % SODIUM CHLORIDE 50 ML VIAL IV (05:23)
--- NOTE | 2025-05-14 05:30 | PC.NURSE ---
Pt desating Placed on 6lpm nasal O2.
[2025-05-14] MEDS: MAGNESIUM SULFATE IN WATER 2 GM/50 ML PIGGYBACK IV (05:39)
[2025-05-14 05:45] LABS: Hepatitis C Ab Qual. W/ RFX NEGATIVE (Negative)
[2025-05-14] MEDS: MORPHINE 4MG/ML SYRINGE 4 MG IV (05:47)
[2025-05-14] MEDS: LACTATED RINGERS 1000ML 1,000 ML 999 ML IV ×2 (05:53→13:30)
[2025-05-14 05:58] LABS: VBG HCO3 22.7 mmol/L (23-30); VBG PCO2 40.9 mmol/L (35-51); VBG PH 7.36 mmol/L (7.31-7.41); VBG PO2 35.5 mmol/L (28-40)
--- NOTE | 2025-05-14 05:58 | PC.NURSE ---
Attempted to call report RN will call back
--- NOTE | 2025-05-14 06:00 | P.HP_ITS ---
<Statement entered by Erik Ramirez MD - 05/14/25 15:49> Patient went into septic shock this morning with SBP in the 70s with WBC 12.0, and tachypnea in the setting of left upper lobe pneumonia. Pressures improved with Levophed at 8 mcg. Will need close monitoring of blood pressure. Procalcitonin 5.05, CRP 194.5. Patient stated he was doing okay during this time, no significant shortness of breath or chest pain. Discussed with pulmonology, started vancomycin, continue cefepime and doxycycline. DuoNebs every 6 hours and Pulmicort twice daily. Follow-up sputum cultures. MAP goal greater than 65. Follow-up morning CBC, CMP, procalcitonin, CRP. ICU/Critical care attestation This patient is critically ill with 30 minutes devoted solely to this patient managing life/organ supporting interventions that required physician assessment. This includes time spent making adjustments in ventilator settings, IV fluid administration, titration of pressors, adjustments of medications, discussion of patient with consultants and other care providers as well as updating patient and/or family (if patient by virtue of his/her condition is unable to participate in decision making). This does not include time spent performing separately billed procedures. Time is not concurrent with that of other providers. History of Present Illness *Admission Date: 05/14/25 *Reason for visit:: Chest discomfort with cough *History of present illness: Patient is a 6-year-old male with past medical history significant for COPD, BPH, CAD, HLD, HHD, tobacco use disorder, thyroid disorder. Presents to [facility] due to fever, chills, chest discomfort exacerbated with cough. Patient reports symptoms began about a week ago and has significantly exacerbated over the last day. Presented to an urgent care yesterday screened for flu and COVID which was negative. at bedside states symptoms progressed overnight and ultimately decided to follow-up to the emergency department. ED workup included CTA chest which revealed a left upper lobe pneumonia. WBC 17. He was found to be hypoxic during evaluation and placed on 4 L nasal cannula. Baseline patient is on room air. Denies nausea, vomiting, diarrhea, urinary symptoms. Initial ED workup included laboratory studies and imaging study. Significant laboratory finding with WBC 17.5, VBG HCO3 22.7, VBG lactic acid 3.8, BUN 26, creatinine 1.60, GFR 44, magnesium 1.2. Imaging obtained with CT a chest in which I reviewed revealing a left upper lobe pneumonia, no evidence of pulmonary embolus, mild emphysema bilateral upper lobes. Upon assessment of patient at bedside he is mildly tachypneic, mild acute distress. Hemodynamically stable on 4 L nasal cannula with adequate saturations. [facility] Disclaimer: The information contained in this section may have been updated after the patient was seen, as this information can be updated by other users. Medical History (Updated 05/14/25 @ 13:10 by Edilma Millard MD) Septic shock Viral upper respiratory infection Smoking greater than 30 pack years Dyspnea on exertion Granulomatous lung disease Pulmonary emphysema Tobacco abuse HLD (hyperlipidemia) HHD (hypertensive heart disease) CAD (coronary artery disease) Surgical History History of below-elbow amputation of right upper extremity History of neck surgery History of tonsillectomy History of lithotripsy History of heart artery stent Family History Other Heart attack Hypertension Stroke Social History (Updated 05/14/25 @ 10:29 by Josephine Armstrong RN) Smoking Status: Current every day smoker tobacco type: cigarettes packs per day: 1 second hand exposure: No alcohol intake: current alcohol intake frequency: holidays/special occasions only substance use type: denies use current occupational status: employed Travel in the last 8 weeks?: None household members: spouse housing: apartment current occupation: [employer] current occupational exposures/hazards: Yes caffeine: Yes Contact w/someone who lives/traveled outside [place] past 30 days?: No Exposure to someone with infectious disease in past 14 days?: No Do you have a fever (greater than 100.4 F or 38 C)?: No Have you tested positive for COVID-19?: No Exposed to someone with COVID-19 in past 14 days?: No Do you have a sore throat?: No Do you have a cough?: No Do you have any weakness?: No Are you experiencing any nausea/vomitting?: No Do you have any diarrhea?: No Are you experiencing any unusual bleeding?: No Do you have any muscle aches/pain?: No Do you have any abdominal pain?: No Are you experiencing loss of taste or smell?: No Other Medical History Have you received the Flu Vaccine for this season: No Have you received the Pneumonia Vaccine: No Review of Systems Review of Systems Review of systems:: pertinent systems reviewed and negative unless documented below Constitutional Constitutional: Reports as per HPI Eyes Eyes: Reports system reviewed and no additional complaints, except as documented and Reports as per HPI ENT Ears, Nose, Mouth, and Throat: Reports system reviewed and no additional com plaints, except as documented and Reports as per HPI *Cardiovascular Cardiovascular: Reports system reviewed and no additional complaints, except as documented, Reports as per HPI and Reports dyspnea *Respiratory Respiratory: Reports as per HPI, Reports cough, Reports dyspnea and Reports pain with cough *Gastrointestinal Gastrointestinal: Reports system reviewed and no additional complaints, except as documented and Reports as per HPI *Genitourinary Genitourinary: Reports system reviewed and no additional complaints, except as documented and Reports as per HPI *Musculoskeletal Musculoskeletal: Reports system reviewed and no additional complaints, except as documented and Reports as per HPI Integumentary/Breasts Skin/Breast: Reports system reviewed and no additional complaints, except as documented and Reports as per HPI *Neurologic Neurologic: Reports system reviewed and no additional complaints, except as documented and Reports as per HPI Psychiatric Psychiatric: Reports system reviewed and no additional complaints, except as documented and Reports as per HPI Endocrine Endocrine: Reports system reviewed and no additional complaints, except as documented and Reports as per HPI Hematologic/Lymphatic Hematologic/Lymphatic: Reports system reviewed and no additional complaints, except as documented and Reports as per HPI Allergic/Immunologic Allergic/Immunologic: Reports system reviewed and no additional complaints, except as documented and Reports as per HPI Meds Home Medications and Allergies Home Medications ?Medication ?Instructions ?Recorded ?Confirmed ?Type aspirin 81 mg tablet,delayed 81 mg PO DAILY 06/25/2007/15/24 History release (Adult Low Dose Aspirin) atorvastatin 80 mg tablet 80 mg PO DAILY 05/14/2504/29 History lisinopril 2.5 mg tablet 2.5 mg PO DAILY 05/14/25 History metoprolol tartrate 25 mg tablet 25 mg PO BID 05/14/25 05/14/25 History tadalafil 5 mg tablet 5 mg PO DAILY 05/14/2505/14 History New Prescriptions to Start Prescriptions: Allergies Allergy/AdvReac Type Severity Reaction Status Date / Time No Known Allergies Allergy Verified 05/13/25 15:03 Exam Data for Last 24 hours Vital signs and Labs for Last 24 Hours: Temp Pulse Resp BP Pulse Ox O2 Del Method 98.0 F 71 35 H 130/107 H 92 L Room Air 05/14/25 04:34 05/14/25 04:48 05/14/25 04:48 05/14/25 04:48 05/14/25 04:48 05/14/25 04:34 Laboratory Results - last 24 hr 05/14/25 04:33: WBC 17.5 H, RBC 4.96, Hgb 15.4, Hct 46.4, MCV 93.5, MCH 31.0, MCHC 33.2, RDW 13.3, Plt Count 179, MPV 9.8, Neut % (Auto) 88.8 H, Lymph % (Auto) 6.2 L, [place] % (Auto) 2.1, Eos % (Auto) 0.7, Baso % (Auto) 0.4, Neut # (Auto) 15.5 H, Lymph # (Auto) 1.1, [place] # (Auto) 0.4, Eos # (Auto) 0.1, Baso # (Auto) 0.1, Sodium 135 L, Potassium 3.9, Chloride 102, Carbon Dioxide 24, Anion Gap 12.9, BUN 26 H, Creatinine 1.60 H, Estimated Creat Clear 60, Estimated GFR 44 L, Est GFR ( Amer) 54 L, Glucose 147 H, Calcium 9.4, Magnesium 1.2 L, Total Bilirubin 1.6 H, AST 59, ALT 35, Alkaline Phosphatase 68, Troponin I < 0.01, Total Protein 6.7, Albumin 3.8, Globulin 2.9, Albumin/Globulin Ratio 1.3, HCV Ab TAQUERIA w/Rflx PCR Qn Negative I & O for Last 24 hours: Intake & Output 05/11/25 05/12/25 05/13/25 05/14/25 23:59 23:59 23:59 23:59 Weight 86.183 kg *Routine HEENT Exam Head: Present normocephalic and atraumatic Eye: Present EOMI, PERRL and normal accommodation ENT: Present mucous membranes dry *Routine Neck Exam Neck: Present supple and full ROM *Routine Respiratory Exam Respiratory: Present accessory muscle use, decreased breath sounds and able to speak in complete sentences *Routine Cardiovascular Exam Cardiovascular: Present RRR, Normal S1 and Normal S2 *Routine Abdominal Exam Abdominal: Present soft and normoactive bowel sounds *Routine Rectal Exam Rectal:: deferred *Routine Genitalia Exam Genitalia:: deferred *Routine Extremities Exam Extremities: Present full ROM, pulses intact and normal capillary refill *Routine Skin Exam Skin: Present intact *Routine Neurological Exam Neurological: Present alert, oriented X3 and CN II-XII intact Routine Psychiatric Exam Psychiatric: Present normal affect Assessment and Plan *Assessment and plan (1) Pneumonia of left upper lobe due to infectious organism: Status: Acute Category: Medical Code(s): J18.9 - Pneumonia, unspecified organism (2) Acute respiratory failure with hypoxia: Status: Acute Category: Medical Code(s): J96.01 - Acute respiratory failure with hypoxia (3) VERONICA (acute kidney injury): Status: Acute Category: Medical Code(s): N17.9 - Acute kidney failure, unspecified (4) Hypomagnesemia: Status: Acute Category: Medical Code(s): E83.42 - Hypomagnesemia (5) Atypical chest pain: Status: Acute Category: Medical Code(s): R07.89 - Other chest pain (6) COPD (chronic obstructive pulmonary disease): Status: Acute Qualifiers: COPD type: COPD with acute exacerbation Qualified Code(s): J44.1 - Chronic obstructive pulmonary disease with (acute) exacerbation Category: Medical Code(s): J44.9 - Chronic obstructive pulmonary disease, unspecified (7) CAD (coronary artery disease): Status: Chronic Qualifiers: Associated angina: without angina Coronary Disease-Associated Artery/Lesion type: [place] artery [place] vs. transplanted heart: [place] heart Qualified Code(s): I25.10 - Atherosclerotic heart disease of [place] coronary artery without angina pectoris Category: Medical Code(s): I25.10 - Atherosclerotic heart disease of [place] coronary artery without angina pectoris (8) HHD (hypertensive heart disease): Status: Chronic Qualifiers: Heart failure presence: without heart failure Qualified Code(s): I11.9 - Hypertensive heart disease without heart failure Category: Medical Code(s): I11.9 - Hypertensive heart disease without heart failure (9) HLD (hyperlipidemia): Status: Chronic Qualifiers: Hyperlipidemia type: mixed hyperlipidemia Qualified Code(s): E78.2 - Mixed hyperlipidemia Category: Medical Code(s): E78.5 - Hyperlipidemia, unspecified (10) Tobacco abuse: Status: Chronic Category: Medical Code(s): Z72.0 - Tobacco use Plan Assessment/plan: This patient was discussed with the emergency department and agree with their treatment. He is a 60-year-old male who presents to the emergency department with length of chest discomfort that is exacerbated with cough. Further workup revealed patient to be hypoxic requiring 4 L nasal cannula on the emergency department. Baseline room air. WBC elevated at 17. Imaging study obtained CTA revealing left upper lobe pneumonia. No evidence of pulmonary embolus. VERONICA with elevated creatinine 1.6, magnesium 1.2. Patient received 1 L LR, Levaquin, albuterol nebulizer. Due to new requirement for supplemental oxygen requirement will continue to monitor O2 closely with continued antibiotic therapy. 1. Pneumonia left upper lobe/acute respiratory failure with hypoxia/COPD: Imaging study as noted above with evidence of left upper lobe pneumonia. WBC 17, VBG lactic acid 3.8, IV fluid bolus received along with Levaquin while in the emergency department, cultures obtained prior to antibiotics/pending. DuoNebs scheduled and as needed, antimucolytic with antitussive. IS at bedside, supplemental O2 to keep sats greater than 90%. Baseline room air, placed on 4 L nasal cannula ED due to hypoxia. Pulmonary hygiene. 2. VERONICA: Creatinine 1.60, baseline creatinine appears to be 0.8-> received 1 L LR received while in the emergency department. Will continue gentle IV fluids, monitor renal status. Trend with morning labs. Avoid nephrotoxic medication. 3. Hypomagnesemia: Magnesium 1.2, received magnesium 2 g while in the emergency department, monitor/trend. Replace as needed. 4. CAD/HHD/HLD: Normotensive, resume home therapy aspirin, antihypertensive medication and statin therapy. Continue to monitor vitals closely. 5. Tobacco abuse: Smokes approximately a pack and a half daily. Nicotine patch ordered. Encouraged cessation, as this affects all aspects of care. Full code DVT prophylaxis heparin subcu Healthy heart diet
[2025-05-14 06:01] LABS: Lactate Venous 3.8 mmol/L (0.4-2.0)
[2025-05-14] MEDS: IPRATROPIUM/ALBUTEROL 3 ML NEB 6 ML IH (06:02)
--- NOTE | 2025-05-14 06:15 | PC.NURSE ---
Report called to Ligia QUINTANILLA Pt transported to floor via stretcher by DIET THERAPIST
[2025-05-14] MEDS: LEVOFLOXACIN/D5W 750 MG/150 ML 750 MG/150 ML PIGGYBACK 100 MG IV (06:21)
[2025-05-14 07:39] LABS: Hematocrit 40.3 % (42.0-52.0); Immature Granulocytes % 0.3 %; Mean Corpuscular HGB Conc 33.7 g/dL (31.8-35.4); Mean Corpuscular Hemoglobin 31.1 pg (27.0-31.2); Mean Corpuscular Volume 92.2 fl (80-94); Nucleated Red Blood Cells % 0 %; Platelet Count 150 K/mm3 (142-424); Red Blood Count 4.37 M/mm3 (4.60-6.20); Red Cell Distribution Width-SD 45.5 fL; White Blood Count 12.0 K/mm3 (4.8-10.8)
[2025-05-14 07:55] LABS: Hemoglobin 13.6 g/dL (14.1-18.0)
[2025-05-14 07:57] LABS: Albumin Level 3.1 g/dl (3.5-5.0); Chloride 103 mmol/L (98-107); Sodium 131 mmol/L (136-145)
[2025-05-14 07:58] LABS: Potassium 3.6 mmoL/L (3.5-5.1)
[2025-05-14] MEDS: NICOTINE 21MG/24HR PATCH 21 MG TD (07:58)
[2025-05-14 08:00] LABS: Alanine Aminotransferase 36 U/L (12-78); Anion Gap 9.6 mEq/L (5-15); Aspartate Amino Transferase 47 U/L (17-59); Bilirubin,Total 1.3 mg/dl (0.2-1.3); Blood Urea Nitrogen 28 mg/dl (9-20); Carbon Dioxide 22 mmol/L (22.0-30.0); Creatinine Clearance Estimated 60 mL/min (50-200); Creatinine,Serum 1.60 mg/dl (0.66-1.25); Estimated Glomerular Filt Rate 44 ml/min (>60); GFR (African American) 54 ML/MIN (>60)
[2025-05-14 08:01] LABS: Albumin/Globulin Ratio 1.3 (1.1-1.8); Alkaline Phosphatase 63 U/L (38-126); Calcium 8.4 mg/dl (8.4-10.2); Globulin 2.4 g/dL (1.3-3.2); Glucose 144 mg/dl (74-100); Total Protein,Serum 5.5 g/dl (6.3-8.2)
[2025-05-14] MEDS: ASPIRIN EC 81MG TABLET 81 MG PO (08:02)
[2025-05-14] MEDS: HEPARIN SODIUM 5,000 UNIT/ML VIAL 5000 UNIT SUBCUT ×3 (08:02→20:39)
--- NOTE | 2025-05-14 08:11 | PC.NURSE ---
MD aware of blood pressures, order for 500 ml bolus to be given.
[2025-05-14 08:12] LABS: Troponin I < 0.01 ng/ml (0.00-0.034)
[2025-05-14] MEDS: 0.9 % SODIUM CHLORIDE 500 ML IV ×2 (08:16→09:20)
--- NOTE | 2025-05-14 09:47 | HMH.PHAAMS2 ---
- Antimicrobial Stewardship Review culture & sensitivity review Stewardship interventions: culture & sensitivity review (CURRENTLY ON CEFEPIME AND DOXYCYCLINE, WBC DECREASED FROM 17.5K TO 12.0K, AFEBRILE, CX PENDING.)
[2025-05-14 10:01] LABS: Reflex Lactic Add Lactic Reflex
[2025-05-14 10:33] LABS: Lactic Acid Follow Up (RFLX 1) 2.0 mmol/L (0.7-2.1)
[2025-05-14] MEDS: NOREPINEPHRINE BITARTRATE/D5W 8 MG/250 ML PLAST..BAG 15 MG IV (10:50)
[2025-05-14] MEDS: SODIUM CHLORIDE 3% 15ML NEB 3 ML IH (11:10)
[2025-05-14] MEDS: IPRATROPIUM/ALBUTEROL 3 ML NEB IH ×3 (11:11→23:06)
[2025-05-14] MEDS: HYDROCODONE/APAP 5/325 MG TABLET 1 TAB PO ×2 (12:16→20:57)
[2025-05-14] MEDS: ONDANSETRON 4MG/2ML VIAL 4 MG IV ×2 (12:16→18:24)
--- NOTE | 2025-05-14 12:23 | PC.NURSE ---
MULTIPLE NURSES HAVE ATTEMPTED TO GET A SECOND IV LINE IN THE PATIENT AND THEY HAVE BEEN UNSUCCESSFUL. MADE AWARE.
--- NOTE | 2025-05-14 12:33 | EXP.PULM.CON ---
History of Present Illness History of present illness: Mr. Rose is a 60-year-old male greater than [id number] smoking history COPD on Stiolto inhaler at baseline not needing any oxygen supplementation presented today with worsening respiratory disease and pulmonary was called for further evaluation and management. Patient admits worsening left-sided chest following worsening cough and productive phlegm prior to hospital admission for the last 5 to 7 days. [facility] Disclaimer: The information contained in this section may have been updated after the patient was seen, as this information can be updated by other users. Medical History (Updated 05/14/25 @ 13:10 by Edilma Millard MD) Septic shock Viral upper respiratory infection Smoking greater than 30 pack years Dyspnea on exertion Granulomatous lung disease Pulmonary emphysema Tobacco abuse HLD (hyperlipidemia) HHD (hypertensive heart disease) CAD (coronary artery disease) Surgical History History of below-elbow amputation of right upper extremity History of neck surgery History of tonsillectomy History of lithotripsy History of heart artery stent Family History Other Heart attack Hypertension Stroke Social History (Updated 05/14/25 @ 10:29 by Josephine Armstrong RN) Smoking Status: Current every day smoker tobacco type: cigarettes packs per day: 1 second hand exposure: No alcohol intake: current alcohol intake frequency: holidays/special occasions only substance use type: denies use current occupational status: employed Travel in the last 8 weeks?: None household members: spouse housing: apartment current occupation: [employer] current occupational exposures/hazards: Yes caffeine: Yes Contact w/someone who lives/traveled outside [place] past 30 days?: No Exposure to someone with infectious disease in past 14 days?: No Do you have a fever (greater than 100.4 F or 38 C)?: No Have you tested positive for COVID-19?: No Exposed to someone with COVID-19 in past 14 days?: No Do you have a sore throat?: No Do you have a cough?: No Do you have any weakness?: No Are you experiencing any nausea/vomitting?: No Do you have any diarrhea?: No Are you experiencing any unusual bleeding?: No Do you have any muscle aches/pain?: No Do you have any abdominal pain?: No Are you experiencing loss of taste or smell?: No Review of Systems Constitutional Constitutional: Reports anorexia, Reports body ache(s) and Reports fatigue Eyes Eyes: Denies eye discharge, Denies dry eyes, Denies irritation and Denies itchy eyes ENT Ears, Nose, Mouth, and Throat: Denies epistaxis, Denies facial pain, Denies lip swelling and Denies throat swelling *Cardiovascular Cardiovascular: Reports dyspnea and Reports dyspnea on exertion *Respiratory Respiratory: Reports change in phlegm color, Reports chest congestion, Reports cough, Reports dyspnea, Reports dyspnea on exertion, Reports excessive phlegm production, Denies hemoptysis, Reports pain on inspiration, Reports pain with cough and Denies wheezing *Gastrointestinal Gastrointestinal: Denies abdominal pain, Denies belching and Denies cramping *Musculoskeletal Musculoskeletal: Reports back pain, Reports myalgias and Reports other (No small joint swelling or Pain) *Neurologic Neurologic: Reports system reviewed and no additional complaints, except as documented and Reports as per HPI Psychiatric Psychiatric: Denies homicidal ideation and Denies suicidal ideation Endocrine Endocrine: Reports fatigue and Denies heat intolerance Hematologic/Lymphatic Hematologic/Lymphatic: Denies easy bleeding and Denies lymphadenopathy Allergic/Immunologic Allergic/Immunologic: Denies itchy eyes, Denies lip swelling, Denies throat swelling and Denies wheezing Pulmonology Exam Inpatient Vital signs and Labs for Last 24 Hours: Temp Pulse Resp BP Pulse Ox O2 Del Method O2 Flow Rate 97.4 F L 69 18 80/45 L 90 L Nasal Cannula 4 05/14/25 11:00 05/14/25 11:12 05/14/25 11:12 05/14/25 11:00 05/14/25 11:00 05/14/25 11:00 05/14/25 11:00 Laboratory Results - last 24 hr 05/14/25 04:33: WBC 17.5 H, RBC 4.96, Hgb 15.4, Hct 46.4, MCV 93.5, MCH 31.0, MCHC 33.2, RDW 13.3, Plt Count 179, MPV 9.8, Neut % (Auto) 88.8 H, Lymph % (Auto) 6.2 L, [place] % (Auto) 2.1, Eos % (Auto) 0.7, Baso % (Auto) 0.4, Neut # (Auto) 15.5 H, Lymph # (Auto) 1.1, [place] # (Auto) 0.4, Eos # (Auto) 0.1, Baso # (Auto) 0.1, Sodium 135 L, Potassium 3.9, Chloride 102, Carbon Dioxide 24, Anion Gap 12.9, BUN 26 H, Creatinine 1.60 H, Estimated Creat Clear 60, Estimated GFR 44 L, Est GFR ( Amer) 54 L, Glucose 147 H, Calcium 9.4, Magnesium 1.2 L, Total Bilirubin 1.6 H, AST 59, ALT 35, Alkaline Phosphatase 68, Troponin I < 0.01, Total Protein 6.7, Albumin 3.8, Globulin 2.9, Albumin/Globulin Ratio 1.3, HCV Ab TAQUERIA w/Rflx PCR Qn Negative, HIV Ag/Ab Combo Qual Negative 05/14/25 05:45: VBG pH 7.36, VBG pCO2 40.9, VBG pO2 35.5, VBG HCO3 22.7 L, VBG Total CO2 24.0, VBG O2 Saturation 69.1, VBG Base Excess -2.7 L, VBG Lactic Acid 3.8 H 05/14/25 07:28: WBC 12.0 H D, RBC 4.37 L, Hgb 13.6 L D, Hct 40.3 L, MCV 92.2, MCH 31.1, MCHC 33.7, RDW 13.3, Plt Count 150, MPV 9.6, Neut % (Auto) 92.4 H, Lymph % (Auto) 5.0 L, [place] % (Auto) 1.8, Eos % (Auto) 0.0 L, Baso % (Auto) 0.5, Neut # (Auto) 11.1 H, Lymph # (Auto) 0.6 L, [place] # (Auto) 0.2, Eos # (Auto) 0.0, Baso # (Auto) 0.1, Sodium 131 L, Potassium 3.6, Chloride 103, Carbon Dioxide 22, Anion Gap 9.6, BUN 28 H, Creatinine 1.60 H, Estimated Creat Clear 60, Estimated GFR 44 L, Est GFR ( Amer) 54 L, Glucose 144 H, Calcium 8.4, Total Bilirubin 1.3, AST 47, ALT 36, Alkaline Phosphatase 63, Troponin I < 0.01, Total Protein 5.5 L, Albumin 3.1 L D, Globulin 2.4, Albumin/Globulin Ratio 1.3 05/14/25 10:16: Lactate 2.0 I & O for Labs for Last 24 Hours: Intake & Output 05/11/25 05/12/25 05/13/25 05/14/25 23:59 23:59 23:59 23:59 Intake Total 2970 / 2970 Balance 2970 / 2970 Weight 192 lb 8 oz Constitutional: Present severe distress Head: Present normocephalic and atraumatic ENT: Present normal exam, normal oropharynx and mucous membranes moist Neck: Present normal inspection and full ROM Respiratory: Present respiratory distress, rhonchi, diminished air movement and able to speak in complete sentences; Absent prolonged expiratory phase or wheezes Cardiac: Present S1/S2, Tachycardia and radial pulses present GI: Present soft and distention; Absent tenderness or guarding Skin: Present intact; Absent cyanosis or jaundice Neuro: Present alert, awake and oriented x 3 Extremities: Present normal inspection; Absent clubbing or cyanosis Psychiatric: Present normal affect and cooperative Meds Home Medications and Allergies Home Medications ?Medication ?Instructions ?Recorded ?Confirmed ?Type aspirin 81 mg tablet,delayed 81 mg PO DAILY 06/25/20 05/14/25 History release (Adult Low Dose Aspirin) atorvastatin 80 mg tablet 80 mg PO DAILY 05/14/25 05/14/25 History lisinopril 2.5 mg tablet 2.5 mg PO DAILY 05/14/25 05/14/25 History metoprolol tartrate 25 mg tablet 25 mg PO BID 05/14/25 05/14/25 History tadalafil 5 mg tablet 5 mg PO DAILY 05/14/25 05/14/25 History New Prescriptions to Start Prescriptions: Allergies Allergy/AdvReac Type Severity Reaction Status Date / Time No Known Allergies Allergy Verified 05/13/25 15:03 Results Laboratory Findings 05/14/25 07:28 05/14/25 07:28 Abnormal lab findings: Abnormal Labs 05/14/25 05/14/25 05/14/25 04:33 05:45 07:28 WBC 17.5 H 12.0 H D RBC 4.37 L Hgb 13.6 L D Hct 40.3 L Neut % (Auto) 88.8 H 92.4 H Lymph % (Auto) 6.2 L 5.0 L Eos % (Auto) 0.0 L Neut # (Auto) 15.5 H 11.1 H Lymph # (Auto) 0.6 L VBG HCO3 22.7 L VBG Base Excess -2.7 L VBG Lactic Acid 3.8 H Sodium 135 L 131 L BUN 26 H 28 H Creatinine 1.60 H 1.60 H Estimated GFR 44 L 44 L Est GFR ( Amer) 54 L 54 L Glucose 147 H 144 H Magnesium 1.2 L Total Bilirubin 1.6 H Total Protein 5.5 L Albumin 3.1 L D Assessment and Plan *Assessment and plan (1) Acute respiratory failure with hypoxia: Status: Acute Category: Medical Code(s): J96.01 - Acute respiratory failure with hypoxia (2) Septic shock: Status: Acute Category: Medical Code(s): A41.9 - Sepsis, unspecified organism; R65.21 - Severe sepsis with septic shock (3) Pneumonia of left upper lobe due to infectious organism: Status: Acute Category: Medical Code(s): J18.9 - Pneumonia, unspecified organism Plan Mr. Rose is a 60-year-old male greater than [id number] smoking history COPD on Stiolto inhaler at baseline not needing any oxygen supplementation presented today with worsening respiratory disease and pulmonary was called for further evaluation and management. Patient admits worsening left-sided chest following worsening cough and productive phlegm prior to hospital admission for the last [address] chest upon admission predominant left upper lobe airspace disease noted. No evidence of pulmonary embolism. No prior cultures available for review Currently receiving cefepime and doxycycline. COVID flu RSV and rhino PCR panel negative. Blood gas upon admission did not show any hypoxic/hypercarbic respiratory failure Plan: 1 L LR bolus Continue vasopressor support to maintain MAP goal of 65-70. Currently on norepinephrine 8 mcg. Continue cefepime and doxycycline. Initiate vancomycin pending final culture results. DuoNebs every 6 hours along with Pulmicort every 12 schedule Continue oxygen supplementation to maintain O2 saturation above 90% and above Comprehensive respiratory viral PCR panel F/U CRP and procalcitonin Total critical care time spent on this patient is 35 minutes managing septic shock needing vasopressor support. This time spent include reviewing test results including interpreting chest x-rays, labs and blood gas, optimizing medications,formulating plan of care, discussing the plan of care with the team and the nursing staff.
[2025-05-14 12:37] LABS: Adenovirus,PCR Not Detected (NotDetected); Chlamydophila Pneumoniae, PCR Not Detected (NotDetected); Coronavirus 19, PCR Not Detected (NotDetected); Coronovirus HKU1,PCR Not Detected (NotDetected); Influenza A, PCR Not Detected (NotDetected); Influenza AH1, 2009 Not Detected (NotDetected); Influenza AH1, PCR Not Detected (NotDetected); Influenza AH3,PCR Not Detected (NotDetected); Influenza B, PCR Not Detected (NotDetected); Mycoplasma Pneumoniae, PCR Not Detected (NotDetected); Parainfluenza 1, PCR Not Detected (NotDetected); Parainfluenza 2, PCR Not Detected (NotDetected); Parainfluenza 3, PCR Not Detected (NotDetected); Parainfluenza 4, PCR Not Detected (NotDetected)
[2025-05-14 12:49] LABS: C-Reactive Protein 194.5 mg/L (0-4)
[2025-05-14 13:01] LABS: Procalcitonin 5.05 ng/mL (0.0-2.0)
--- NOTE | 2025-05-14 13:19 | EXP.PHA.CONS ---
Pharmacy Consult Date: 05/14/25 Time: 13:31 Referring provider: DR MILLARD Reason for Consult:: VANCOMYCIN DOSING CONSULT Allergies Allergy/AdvReac Type Severity Reaction Status Date / Time No Known Allergies Allergy Verified 05/13/25 15:03 Home Medications ?Medication ?Instructions ?Recorded ?Confirmed ?Type aspirin 81 mg tablet,delayed 81 mg PO DAILY 06/25/20 05/14/25 History release (Adult Low Dose Aspirin) atorvastatin 80 mg tablet 80 mg PO DAILY 05/14/25 05/14/25 History lisinopril 2.5 mg tablet 2.5 mg PO DAILY 05/14/25 05/14/25 History metoprolol tartrate 25 mg tablet 25 mg PO BID 05/14/25 05/14/25 History tadalafil 5 mg tablet 5 mg PO DAILY 05/14/25 05/14/25 History New Prescriptions to Start Prescriptions: Height: 1.83 m Weight: 87.317 kg Laboratory Results:: Laboratory Results - last 24 hr 05/14/25 04:33: WBC 17.5 H, RBC 4.96, Hgb 15.4, Hct 46.4, MCV 93.5, MCH 31.0, MCHC 33.2, RDW 13.3, Plt Count 179, MPV 9.8, Neut % (Auto) 88.8 H, Lymph % (Auto) 6.2 L, [place] % (Auto) 2.1, Eos % (Auto) 0.7, Baso % (Auto) 0.4, Neut # (Auto) 15.5 H, Lymph # (Auto) 1.1, [place] # (Auto) 0.4, Eos # (Auto) 0.1, Baso # (Auto) 0.1, Sodium 135 L, Potassium 3.9, Chloride 102, Carbon Dioxide 24, Anion Gap 12.9, BUN 26 H, Creatinine 1.60 H, Estimated Creat Clear 60, Estimated GFR 44 L, Est GFR ( Amer) 54 L, Glucose 147 H, Calcium 9.4, Magnesium 1.2 L, Total Bilirubin 1.6 H, AST 59, ALT 35, Alkaline Phosphatase 68, Troponin I < 0.01, Total Protein 6.7, Albumin 3.8, Globulin 2.9, Albumin/Globulin Ratio 1.3, HCV Ab [place] w/Rflx PCR Qn Negative, HIV Ag/Ab Combo Qual Negative 05/14/25 05:45: VBG pH 7.36, VBG pCO2 40.9, VBG pO2 35.5, VBG HCO3 22.7 L, VBG Total CO2 24.0, VBG O2 Saturation 69.1, VBG Base Excess -2.7 L, VBG Lactic Acid 3.8 H 05/14/25 07:20: C-Reactive Protein 194.5 H, Procalcitonin 5.05 H 05/14/25 07:28: WBC 12.0 H D, RBC 4.37 L, Hgb 13.6 L D, Hct 40.3 L, MCV 92.2, MCH 31.1, MCHC 33.7, RDW 13.3, Plt Count 150, MPV 9.6, Neut % (Auto) 92.4 H, Lymph % (Auto) 5.0 L, [place] % (Auto) 1.8, Eos % (Auto) 0.0 L, Baso % (Auto) 0.5, Neut # (Auto) 11.1 H, Lymph # (Auto) 0.6 L, [place] # (Auto) 0.2, Eos # (Auto) 0.0, Baso # (Auto) 0.1, Sodium 131 L, Potassium 3.6, Chloride 103, Carbon Dioxide 22, Anion Gap 9.6, BUN 28 H, Creatinine 1.60 H, Estimated Creat Clear 60, Estimated GFR 44 L, Est GFR ( Amer) 54 L, Glucose 144 H, Calcium 8.4, Total Bilirubin 1.3, AST 47, ALT 36, Alkaline Phosphatase 63, Troponin I < 0.01, Total Protein 5.5 L, Albumin 3.1 L D, Globulin 2.4, Albumin/Globulin Ratio 1.3 05/14/25 10:16: Lactate 2.0 Medical History: Medical History (Updated 05/14/25 @ 13:10 by Edilma Millard MD) Septic shock Viral upper respiratory infection Smoking greater than 30 pack years Dyspnea on exertion Granulomatous lung disease Pulmonary emphysema Tobacco abuse HLD (hyperlipidemia) HHD (hypertensive heart disease) CAD (coronary artery disease) Assessment and Plan Assessment and plan all Dx Assessment and Plan for all problems:: Pharmacokinetic dosing service Objective: Age: 60 yo Serum creatinine: 1.6 mg/dL Height: 72.0 Inches Weight (kg): 87.317 Diagnosis: PNEUMONIA Assessment: IBW (kg): 77.60 Dosing wt(kg): 87.317 Estimated Creatinine clearance (ml/min): 53.9 CRCL method: Cockcroft and Gault using ibw(default). Drug selected: Vancomycin Vd (liters): 61.1 (factor used: 0.7 L/kg) Arben (hr-1): 0.049 Half life (hrs): 14.15 CLvanco=?? 2.994 L/hr Recommended dose: 1500 mg Interval: 24 hrs Infusion time (hrs): 2.0 Predicted peak (mcg/mL): 33.8 Predicted trough (mcg/mL): 11.50 Total body weight is being used for vancomycin dosing. Recommendations: Give Vancomycin 1500 mg q 24 hrs with an expected Cpeak of 33.8 mcg/ml and an expected Ctrough of 11.50 mcg/ml AUC 0-24 /RUI Data: RUI 0.5 mcg/mL:?? AUC/RUI:? 1002.0 RUI 1.0 mcg/mL:?? AUC/RUI:? 501.0 --------- RUI 1.5 mcg/mL:?? AUC/RUI:? 334.0 RUI 2.0 mcg/mL:?? AUC/RUI:? 250.5 Thank you for the consult
[2025-05-14] MEDS: 0.9 % SODIUM CHLORIDE 1000ML 1,000 ML 75 ML IV ×2 (14:31→23:53)
[2025-05-14] MEDS: VANCOMYCIN/WATER FOR INJ (PEG) 1.5 GM/300 ML PIGGYBACK IV (14:47)
[2025-05-14] MEDS: KETOROLAC 15MG/ML VIAL 15 MG IV ×2 (14:59→20:57)
[2025-05-14] MEDS: CEFEPIME HCL 2 GM in 0.9 % SODIUM CHLORIDE 100 ML IV ×2 (16:55→23:53)
[2025-05-14] MEDS: DOXYCYCLINE HYCLATE 100 MG in 0.9 % SODIUM CHLORIDE 250 ML 166.67 MG IV (17:31)
[2025-05-14] MEDS: BUDESONIDE 0.5MG/2ML NEB 0.5 MG IH (18:02)
[2025-05-14] MEDS: METOPROLOL TARTRATE 25MG TABLET 25 MG PO (20:40)
[2025-05-14] MEDS: ATORVASTATIN 40MG TABLET 80 MG PO (20:40)
[2025-05-15] VITALS (29 sets, daily range): BP systolic 86–130; BP diastolic 49–70; PULSE 62–95; RESP 20–32; TEMP 36.7–37.3; O2SAT 89–98; BMI 26.6
[2025-05-15] MEDS: guaiFENesin 200MG/10ML SYRUP UDC 200 MG PO (02:58)
[2025-05-15] MEDS: DOXYCYCLINE HYCLATE 100 MG in 0.9 % SODIUM CHLORIDE 250 ML 166.67 MG IV ×2 (06:21→16:42)
[2025-05-15] MEDS: BUDESONIDE 0.5MG/2ML NEB 0.5 MG IH ×2 (06:24→18:17)
[2025-05-15] MEDS: IPRATROPIUM/ALBUTEROL 3 ML NEB IH ×4 (06:24→23:58)
[2025-05-15 06:46] LABS: Hematocrit 39.1 % (42.0-52.0); Hemoglobin 12.9 g/dL (14.1-18.0); Immature Granulocytes % 1.1 %; Mean Corpuscular HGB Conc 33.0 g/dL (31.8-35.4); Mean Corpuscular Hemoglobin 30.8 pg (27.0-31.2); Mean Corpuscular Volume 93.3 fl (80-94); Nucleated Red Blood Cells % 0 %; Platelet Count 151 K/mm3 (142-424); Red Blood Count 4.19 M/mm3 (4.60-6.20); Red Cell Distribution Width-SD 46.7 fL; White Blood Count 17.8 K/mm3 (4.8-10.8)
[2025-05-15 07:12] LABS: Albumin Level 3.1 g/dl (3.5-5.0); Chloride 106 mmol/L (98-107); Potassium 3.8 mmoL/L (3.5-5.1); Sodium 131 mmol/L (136-145)
[2025-05-15 07:15] LABS: Alanine Aminotransferase 32 U/L (12-78); Albumin/Globulin Ratio 1.2 (1.1-1.8); Alkaline Phosphatase 75 U/L (38-126); Anion Gap 4.8 mEq/L (5-15); Aspartate Amino Transferase 35 U/L (17-59); Bilirubin,Total 0.9 mg/dl (0.2-1.3); Blood Urea Nitrogen 29 mg/dl (9-20); Calcium 8.2 mg/dl (8.4-10.2); Carbon Dioxide 24 mmol/L (22.0-30.0); Creatinine Clearance Estimated 90 mL/min (50-200); Creatinine,Serum 1.10 mg/dl (0.66-1.25); Estimated Glomerular Filt Rate 68 ml/min (>60); GFR (African American) 83 ML/MIN (>60); Globulin 2.6 g/dL (1.3-3.2); Glucose 97 mg/dl (74-100); Total Protein,Serum 5.7 g/dl (6.3-8.2)
[2025-05-15 07:21] LABS: C-Reactive Protein 295.1 mg/L (0-4)
[2025-05-15] MEDS: HEPARIN SODIUM 5,000 UNIT/ML VIAL 5000 UNIT SUBCUT ×2 (08:06→12:10)
[2025-05-15] MEDS: ASPIRIN EC 81MG TABLET 81 MG PO (08:06)
[2025-05-15] MEDS: CEFEPIME HCL 2 GM in 0.9 % SODIUM CHLORIDE 100 ML IV ×2 (08:07→16:17)
[2025-05-15] MEDS: NICOTINE 21MG/24HR PATCH 21 MG TD (08:42)
--- NOTE | 2025-05-15 09:30 | HMH.PHAAMS2 ---
- Antimicrobial Stewardship Review culture & sensitivity review Stewardship interventions: culture & sensitivity review, reviewed - no change Comments: SPUTUM PENDING, BLOOD CX NO GROWTH AT 24 HR, PATIENT ON DOXYCYCLINE, CEFEPIME, VANCOMYCIN FOR PNEUMONIA/SEPSIS PENDING CX RESULTS PER RESPIRATORY NOTE.
[2025-05-15 09:31] LABS: Procalcitonin 4.99 ng/mL (0.0-2.0)
[2025-05-15] MEDS: VANCOMYCIN/WATER FOR INJ (PEG) 1.25 GM/250 ML PIGGYBACK IV ×2 (10:26→20:12)
[2025-05-15] MEDS: KETOROLAC 15MG/ML VIAL 15 MG IV ×2 (10:31→16:39)
--- NOTE | 2025-05-15 14:12 | P.PN_ITS ---
Subjective *Date: 05/15/25 *Time: 14:12 Interval history: Patient feels better today. Continues to require 2 L nasal cannula intermittently. Saturating 90% on room air at rest at this time. Will continue IV vancomycin, cefepime, doxycycline pending final sputum cultures. Exam Data for Last 24 hours Vital signs and Labs for Last 24 Hours: Temp Pulse Resp BP Pulse Ox O2 Del Method O2 Flow Rate 98.3 F 88 28 H 115/61 90 L Room Air 1 05/15/25 12:05/15/25 12:00 05/15/25 12:00 05/15/25 12:13 05/15/25 12:00 05/15/25 12:53 05/15/25 09:00 Laboratory Results - last 24 hr 05/15/25 06:18: WBC 17.8 H D, RBC 4.19 L, Hgb 12.9 L, Hct 39.1 L, MCV 93.3, MCH 30.8, MCHC 33.0, RDW 13.7, Plt Count 151, MPV 9.8, Neut % (Auto) 90.3 H, Lymph % (Auto) 6.1 L, [place] % (Auto) 1.8, Eos % (Auto) 0.1, Baso % (Auto) 0.6, Neut # (Auto) 16.1 H, Lymph # (Auto) 1.1, [place] # (Auto) 0.3, Eos # (Auto) 0.0, Baso # (Auto) 0.1, Sodium 131 L, Potassium 3.8, Chloride 106, Carbon Dioxide 24, Anion Gap 4.8 L, BUN 29 H, Creatinine 1.10 D, Estimated Creat Clear 90, Estimated GFR 68, Est GFR ( Amer) 83 D, Glucose 97 D, Calcium 8.2 L, Total Bilirubin 0.9, AST 35 D, ALT 32, Alkaline Phosphatase 75, C-Reactive Protein 295.1 H, Total Protein 5.7 L, Albumin 3.1 L, Globulin 2.6, Albumin/Globulin Ratio 1.2, Procalcitonin 4.99 H I & O for Last 24 hours: Intake & Output 05/12/25 05/13/25 05/14/25 05/15/25 23:59 23:59 23:59 23:59 Intake Total 0266.947 / 2735.947 2242.094 / 224.094 Output Total 700 / 700 300 / 300 Balance 4806.947 / 5526.947 1942.094 / 194.094 Weight 87.317 kg 89.312 kg Microbiology Reports for the Last 24 Hours: Microbiology 05/14/25 11:25 Sputum - Expectorated Sputum Gram Stain - Final 05/14/25 11:25 Sputum - Expectorated Sputum Sputum Culture - Preliminary 05/14/25 05:40 Blood Blood Culture - Preliminary NO GROWTH AFTER 24 HOURS 05/14/25 05:47 Blood Blood Culture - Preliminary NO GROWTH AFTER 24 HOURS Constitutional Constitutional: no acute distress and chronically ill appearing *Routine HEENT Exam Head: Present normocephalic Eye: Present EOMI and PERRL ENT: Present mucous membranes moist *Routine Neck Exam Neck: Present supple; Absent lymphadenopathy *Routine Respiratory Exam Respiratory: Present CTA bilaterally *Routine Cardiovascular Exam Cardiovascular: Present RRR *Routine Abdominal Exam Abdominal: Present soft and normoactive bowel sounds; Absent tenderness *Routine Extremities Exam Extremities: Absent cyanosis, clubbing or edema *Routine Skin Exam Skin: Present warm; Absent rash *Routine Neurological Exam Neurological: Present alert and oriented X3 Assessment and Plan *Assessment and plan (1) Pneumonia of left upper lobe due to infectious organism: Status: Acute Category: Medical Code(s): J18.9 - Pneumonia, unspecified organism (2) Acute respiratory failure with hypoxia: Status: Acute Category: Medical Code(s): J96.01 - Acute respiratory failure with hypoxia (3) VERONICA (acute kidney injury): Status: Acute Category: Medical Code(s): N17.9 - Acute kidney failure, unspecified (4) Hypomagnesemia: Status: Acute Category: Medical Code(s): E83.42 - Hypomagnesemia (5) Atypical chest pain: Status: Acute Category: Medical Code(s): R07.89 - Other chest pain (6) COPD (chronic obstructive pulmonary disease): Status: Acute Qualifiers: COPD type: COPD with acute exacerbation Qualified Code(s): J44.1 - Chronic obstructive pulmonary disease with (acute) exacerbation Category: Medical Code(s): J44.9 - Chronic obstructive pulmonary disease, unspecified (7) CAD (coronary artery disease): Status: Chronic Qualifiers: Coronary Disease-Associated Artery/Lesion type: [place] artery [place] vs. transplanted heart: [place] heart Associated angina: without angina Qualified Code(s): I25.10 - Atherosclerotic heart disease of [place] coronary artery without angina pectoris Category: Medical Code(s): I25.10 - Atherosclerotic heart disease of [place] coronary artery without angina pectoris (8) HHD (hypertensive heart disease): Status: Chronic Qualifiers: Heart failure presence: without heart failure Qualified Code(s): I11.9 - Hypertensive heart disease without heart failure Category: Medical Code(s): I11.9 - Hypertensive heart disease without heart failure (9) HLD (hyperlipidemia): Status: Chronic Qualifiers: Hyperlipidemia type: mixed hyperlipidemia Qualified Code(s): E78.2 - Mixed hyperlipidemia Category: Medical Code(s): E78.5 - Hyperlipidemia, unspecified (10) Tobacco abuse: Status: Chronic Category: Medical Code(s): Z72.0 - Tobacco use Plan Assessment/plan: This patient was discussed with the emergency department and agree with their treatment. He is a 60-year-old male who presents to the emergency department with length of chest discomfort that is exacerbated with cough. Further workup revealed patient to be hypoxic requiring 4 L nasal cannula on the emergency department. Baseline room air. Initial WBC elevated at 17. Imaging study obtained on admission CTA revealing left upper lobe pneumonia. No evidence of pulmonary embolus. VERONICA with elevated creatinine 1.6, magnesium 1.2. Patient received 1 L LR, Levaquin, albuterol nebulizer. Due to new requirement for supplemental oxygen requirement will continue to monitor O2 closely with continued antibiotic therapy. 1. Pneumonia left upper lobe/acute respiratory failure with hypoxia/COPD: Imaging study as noted above with evidence of left upper lobe pneumonia. Initial WBC 17, VBG lactic acid 3.8, IV fluid bolus received along with Levaquin while in the emergency department, cultures obtained prior to antibiotics/pending. DuoNebs scheduled and as needed, antimucolytic with antitussive. IS at bedside, supplemental O2 to keep sats greater than 90%. Bas yuri room air, placed on 4 L nasal cannula ED due to hypoxia. Pulmonary hygiene. ? Patient became hypotensive, required fluid resuscitation and transient Levophed with improvement in blood pressures. Today, blood pressures have normalized. ? WBC bumped from 12-17.8, procalcitonin slightly down from 5.05-4.99 today. ? However, patient feels better today. Continues to require 3 L nasal cannula i ntermittently. Saturating 90% on room air at rest at this time. ? Will continue IV vancomycin, cefepime, doxycycline pending final sputum cultures. ? Follow-up morning CBC, CRP, procalcitonin, MRSA PCR. 2. VERONICA, resolved: Initial creatinine 1.60, baseline creatinine appears to be 0.8-> received 1 L LR received while in the emergency department. Will continue gentle IV fluids, monitor renal status. Trend with morning labs. Avoid nephrotoxic medication. ? Creatinine improved to 1.1 today. Follow-up morning RFT's. 4. CAD/HHD/HLD: Normotensive, resume home therapy aspirin, antihypertensive medication and statin therapy. Continue to monitor vitals closely. 5. Tobacco abuse: Smokes approximately a pack and a half daily. Nicotine patch ordered. Encouraged cessation, as this affects all aspects of care. Full code DVT prophylaxis 40 mg Healthy heart diet
[2025-05-15] MEDS: SODIUM CHLORIDE 0.9% 10ML FLUSH SYRINGE 10 ML IV (16:39)
[2025-05-15] MEDS: ATORVASTATIN 40MG TABLET 80 MG PO (20:12)
[2025-05-16] VITALS (7 sets, daily range): BP systolic 118–129; BP diastolic 64–69; PULSE 70–85; RESP 19–27; TEMP 36.9–37.1; O2SAT 91–95; BMI 26.9
[2025-05-16] LABS: MRSA DNA PCR Negative (Negative)
[2025-05-16] MEDS: CEFEPIME HCL 2 GM in 0.9 % SODIUM CHLORIDE 100 ML IV ×2 (00:30→08:21)
[2025-05-16] MEDS: DOXYCYCLINE HYCLATE 100 MG in 0.9 % SODIUM CHLORIDE 250 ML 166.67 MG IV (05:08)
[2025-05-16 05:31] LABS: Hematocrit 35.4 % (42.0-52.0); Hemoglobin 11.8 g/dL (14.1-18.0); Immature Granulocytes % 0.3 %; Mean Corpuscular HGB Conc 33.3 g/dL (31.8-35.4); Mean Corpuscular Hemoglobin 31.0 pg (27.0-31.2); Mean Corpuscular Volume 92.9 fl (80-94); Nucleated Red Blood Cells % 0 %; Platelet Count 146 K/mm3 (142-424); Red Blood Count 3.81 M/mm3 (4.60-6.20); Red Cell Distribution Width-SD 46.6 fL; White Blood Count 14.9 K/mm3 (4.8-10.8)
[2025-05-16 05:36] LABS: Albumin Level 2.9 g/dl (3.5-5.0); Chloride 108 mmol/L (98-107); Sodium 132 mmol/L (136-145)
[2025-05-16 05:37] LABS: Potassium 3.4 mmoL/L (3.5-5.1)
[2025-05-16 05:39] LABS: Alanine Aminotransferase 28 U/L (12-78); Albumin/Globulin Ratio 1.1 (1.1-1.8); Anion Gap 3.4 mEq/L (5-15); Aspartate Amino Transferase 36 U/L (17-59); Blood Urea Nitrogen 22 mg/dl (9-20); Carbon Dioxide 24 mmol/L (22.0-30.0); Creatinine Clearance Estimated 111 mL/min (50-200); Creatinine,Serum 0.90 mg/dl (0.66-1.25); Estimated Glomerular Filt Rate 86 ml/min (>60); GFR (African American) 104 ML/MIN (>60); Globulin 2.7 g/dL (1.3-3.2); Total Protein,Serum 5.6 g/dl (6.3-8.2)
[2025-05-16 05:40] LABS: Alkaline Phosphatase 114 U/L (38-126); Bilirubin,Total 0.7 mg/dl (0.2-1.3); Calcium 8.0 mg/dl (8.4-10.2); Glucose 87 mg/dl (74-100)
[2025-05-16 05:44] LABS: Magnesium 2.0 mg/dl (1.6-2.3)
[2025-05-16] MEDS: IPRATROPIUM/ALBUTEROL 3 ML NEB IH ×2 (05:52→11:05)
[2025-05-16] MEDS: BUDESONIDE 0.5MG/2ML NEB 0.5 MG IH (05:53)
[2025-05-16 05:57] LABS: C-Reactive Protein 250.9 mg/L (0-4)
--- NOTE | 2025-05-16 06:00 | XR_ITS ---
PROCEDURE INFORMATION: Exam: XR Chest Exam date and time: 05/16/2025 5:28 AM Age: 60 years old Clinical indication: Other: F/u pneumonia; Additional info: Follow-up pneumonia TECHNIQUE: Imaging protocol: Radiologic exam of the chest. Views: 1 view. COMPARISON: CT ANGIO CHEST PE PROTOCOL 05/14/2025 5:13 AM FINDINGS: Lungs: Extensive airspace disease is again noted within the left chest most prominently in the left mid chest and lung base. This is not significantly changed when compared to prior CT of 05/14/2025. Pleural spaces: Unremarkable. No pleural effusion. No pneumothorax. Heart/Mediastinum: Unremarkable. No cardiomegaly. Diaphragm: Elevation of the left hemidiaphragm is noted. Bones/joints: Unremarkable. IMPRESSION: Stable left-sided infiltrate.
[2025-05-16] MEDS: NICOTINE 21MG/24HR PATCH 21 MG TD (08:19)
[2025-05-16] MEDS: ASPIRIN EC 81MG TABLET 81 MG PO (08:27)
--- NOTE | 2025-05-16 08:44 | HMH.PHAAMS2 ---
- Antimicrobial Stewardship Review culture & sensitivity review Stewardship interventions: culture & sensitivity review (CURRENTLY RECEIVING CEFEPIME AND DOXY, WBC STILL ELEVATED AT 14.9K, AFEBRILE, CX WITH NO REPORTABLE GROWTH.)
[2025-05-16 09:23] LABS: Vancomycin,Trough 7.5 ug/mL (5.0-10.0)
--- NOTE | 2025-05-16 09:38 | P.PN_ITS ---
Subjective *Date: 05/16/25 *Time: 10:56 Interval history: No acute respiratory events overnight. Admits continued improvement in his respiratory symptoms. Pulmonology Exam Inpatient Vital signs and Labs for Last 24 Hours: Temp Pulse Resp BP Pulse Ox O2 Del Method O2 Flow Rate 98.8 F 79 27 H 129/69 91 L Room Air 1 05/16/25 08:06 05/16/25 08:06 05/16/25 08:06 05/16/25 08:06 05/16/25 08:06 05/16/25 09:00 05/15/25 09:00 Laboratory Results - last 24 hr 05/15/25 06:18: Procalcitonin 4.99 H 05/15/25 08:08: MRSA (PCR) Negative 05/16/25 04:20: WBC 14.9 H, RBC 3.81 L, Hgb 11.8 L, Hct 35.4 L, MCV 92.9, MCH 31.0, MCHC 33.3, RDW 13.6, Plt Count 146, MPV 10.4, Neut % (Auto) 87.7 H, Lymph % (Auto) 7.8 L, [place] % (Auto) 3.5, Eos % (Auto) 0.4, Baso % (Auto) 0.3, Neut # (Auto) 13.1 H, Lymph # (Auto) 1.2, [place] # (Auto) 0.5, Eos # (Auto) 0.1, Baso # (Auto) 0.0, Sodium 132 L, Potassium 3.4 L, Chloride 108 H, Carbon Dioxide 24, Anion Gap 3.4 L, BUN 22 H, Creatinine 0.90, Estimated Creat Clear 111, Estimated GFR 86, Est GFR ( Amer) 104 D, Glucose 87, Calcium 8.0 L, Magnesium 2.0 D, Total Bilirubin 0.7, AST 36, ALT 28, Alkaline Phosphatase 114, C-Reactive Protein 250.9 H, Total Protein 5.6 L, Albumin 2.9 L, Globulin 2.7, Albumin/Globulin Ratio 1.1 05/16/25 07:50: Vancomycin Trough 7.5 Temp Pulse Resp BP Pulse Ox O2 Del Method O2 Flow Rate 97.4 F L 69 18 80/45 L 90 L Nasal Cannula 4 05/14/25 11:00 05/14/25 11:12 05/14/25 11:12 05/14/25 11:00 05/14/25 11:00 05/14/25 11:00 05/14/25 11:00 Laboratory Results - last 24 hr 05/14/25 04:33: WBC 17.5 H, RBC 4.96, Hgb 15.4, Hct 46.4, MCV 93.5, MCH 31.0, MCHC 33.2, RDW 13.3, Plt Count 179, MPV 9.8, Neut % (Auto) 88.8 H, Lymph % (Auto) 6.2 L, [place] % (Auto) 2.1, Eos % (Auto) 0.7, Baso % (Auto) 0.4, Neut # (Auto) 15.5 H, Lymph # (Auto) 1.1, [place] # (Auto) 0.4, Eos # (Auto) 0.1, Baso # (Auto) 0.1, Sodium 135 L, Potassium 3.9, Chloride 102, Carbon Dioxide 24, Anion Gap 12.9, BUN 26 H, Creatinine 1.60 H, Estimated Creat Clear 60, Estimated GFR 44 L, Est GFR ( Amer) 54 L, Glucose 147 H, Calcium 9.4, Magnesium 1.2 L, Total Bilirubin 1.6 H, AST 59, ALT 35, Alkaline Phosphatase 68, Troponin I < 0.01, Total Protein 6.7, Albumin 3.8, Globulin 2.9, Albumin/Globulin Ratio 1.3, HCV Ab [place] w/Rflx PCR Qn Negative, HIV Ag/Ab Combo Qual Negative 05/14/25 05:45: VBG pH 7.36, VBG pCO2 40.9, VBG pO2 35.5, VBG HCO3 22.7 L, VBG Total CO2 24.0, VBG O2 Saturation 69.1, VBG Base Excess -2.7 L, VBG Lactic Acid 3.8 H 05/14/25 07:28: WBC 12.0 H D, RBC 4.37 L, Hgb 13.6 L D, Hct 40.3 L, MCV 92.2, MCH 31.1, MCHC 33.7, RDW 13.3, Plt Count 150, MPV 9.6, Neut % (Auto) 92.4 H, [place] % (Auto) 5.0 L, [place] % (Auto) 1.8, Eos % (Auto) 0.0 L, Baso % (Auto) 0.5, Neut # (Auto) 11.1 H, Lymph # (Auto) 0.6 L, [place] # (Auto) 0.2, Eos # (Auto) 0.0, Baso # (Auto) 0.1, Sodium 131 L, Potassium 3.6, Chloride 103, Carbon Dioxide 22, Anion Gap 9.6, BUN 28 H, Creatinine 1.60 H, Estimated Creat Clear 60, Estimated GFR 44 L, Est GFR ( Amer) 54 L, Glucose 144 H, Calcium 8.4, Total Bilirubin 1.3, AST 47, ALT 36, Alkaline Phosphatase 63, Troponin I < 0.01, Total Protein 5.5 L, Albumin 3.1 L D, Globulin 2.4, Albumin/Globulin Ratio 1.3 05/14/25 10:16: Lactate 2.0 I & O for Labs for Last 24 Hours: Intake & Output 05/13/25 05/14/25 05/15/25 05/16/25 23:59 23:59 23:59 23:59 Intake Total 5506.947 / 6226.947 4322.094 / 4322.094 350 / 350 Output Total 700 / 700 1050 / 1050 525 / 525 Balance 4806.947 / 5526.947 3272.094 / 3272.094 -175 / -175 Weight 192 lb 8 oz 196 lb 14.4 oz 199 lb Intake & Output 05/11/25 05/12/25 05/13/25 05/14/25 23:59 23:59 23:59 23:59 Intake Total 2970 / 2970 Balance 2970 / 2970 Weight 192 lb 8 oz Microbiology Reports for the Last 24 Hours: Microbiology 05/14/25 11:25 Sputum - Expectorated Sputum Gram Stain - Final 05/14/25 11:25 Sputum - Expectorated Sputum Sputum Culture - Preliminary 05/14/25 05:47 Blood Blood Culture - Preliminary NO GROWTH AFTER 48 HOURS 05/14/25 05:40 Blood Blood Culture - Preliminary NO GROWTH AFTER 48 HOURS Constitutional: Present moderate distress Head: Present normocephalic and atraumatic ENT: Present normal exam, normal oropharynx and mucous membranes moist Neck: Present normal inspection and full ROM Respiratory: Present respiratory distress, rhonchi, diminished air movement and able to speak in complete sentences; Absent prolonged expiratory phase or wheezes Cardiac: Present S1/S2, Tachycardia and radial pulses present GI: Present soft and distention; Absent tenderness or guarding Skin: Present intact; Absent cyanosis or jaundice Neuro: Present alert, awake and oriented x 3 Extremities: Present normal inspection; Absent clubbing or cyanosis Psychiatric: Present normal affect and cooperative Assessment and Plan *Assessment and plan (1) Acute respiratory failure with hypoxia: Status: Acute Category: Medical Code(s): J96.01 - Acute respiratory failure with hypoxia (2) Septic shock: Status: Acute Category: Medical Code(s): A41.9 - Sepsis, unspecified organism; R65.21 - Severe sepsis with septic shock (3) Pneumonia of left upper lobe due to infectious organism: Status: Acute Category: Medical Code(s): J18.9 - Pneumonia, unspecified organism Plan Mr. Rose is a 60-year-old male greater than [id number] smoking history COPD on Stiolto inhaler at baseline not needing any oxygen supplementation presented today with worsening respiratory disease and pulmonary was called for further evaluation and management. Patient admits worsening left-sided chest following worsening cough and productive phlegm prior to hospital admission for the last [address] chest upon admission predominant left upper lobe airspace disease noted. No evidence of pulmonary embolism. No prior cultures available for review Currently receiving cefepime and doxycycline. COVID flu RSV and rhino PCR panel negative. Blood gas upon admission did not show any hypoxic/hypercarbic respiratory failure Interval update No acute respiratory events overnight. Improving ox requirements. Off pressors, hemodynamically stable. Blood cultures no growth 48 hours. Prelim sputum cultures 10-25 WBC moderate gram-positive cocci in clusters and diplococci. Chest x-ray from this morning continues to dense of left upper lobe consolidative changes relatively unchanged from prior. Continue to receive vancomycin and cefepime and doxycycline. Complains of respiratory viral PCR panel negative. Nasal MRSA PCR negative. Procalcitonin relatively stable at 5.05 and 4.99. CRP improving from yesterday. Weaned to room air with saturations maintained at 90% and above. 6-minute walk test and saturations stayed at 90% and above. Plan: Wean antibiotics to levofloxacin to complete a total of 7-day course Dionnabs every 6 hours along with Pulmicort every 12 schedule Continue oxygen supplementation to maintain O2 saturation above 90% and above. # Thank you for involving pulmonary in this patient care. Will follow in pulmonary clinic 5 to 7 days postdischarge
[2025-05-16 09:51] LABS: Procalcitonin 3.11 ng/mL (0.0-2.0)
--- NOTE | 2025-05-16 10:50 | EXP.DC.SUM ---
General Admission date:: 05/14/25 HPI HPI HPI: Patient is a 6-year-old male with past medical history significant for COPD, BPH, CAD, HLD, HHD, tobacco use disorder, thyroid disorder. Presents to [facility] due to fever, chills, chest discomfort exacerbated with cough. Patient reports symptoms began about a week ago and has significantly exacerbated over the last day. Presented to an urgent care yesterday screened for flu and COVID which was negative. at bedside states symptoms progressed overnight and ultimately decided to follow-up to the emergency department. ED workup included CTA chest which revealed a left upper lobe pneumonia. WBC 17. He was found to be hypoxic during evaluation and placed on 4 L nasal cannula. Baseline patient is on room air. Denies nausea, vomiting, diarrhea, urinary symptoms. Initial ED workup included laboratory studies and imaging study. Significant laboratory finding with WBC 17.5, VBG HCO3 22.7, VBG lactic acid 3.8, BUN 26, creatinine 1.60, GFR 44, magnesium 1.2. Imaging obtained with CT a chest in which I reviewed revealing a left upper lobe pneumonia, no evidence of pulmonary embolus, mild emphysema bilateral upper lobes. Upon assessment of patient at bedside he is mildly tachypneic, mild acute distress. Hemodynamically stable on 4 L nasal cannula with adequate saturations. Hospital Course Hospital Course Hospital Course: This patient was discussed with the emergency department and agree with their treatment. He is a 60-year-old male who presents to the emergency department with length of chest discomfort that is exacerbated with cough. Further workup revealed patient to be hypoxic requiring 4 L nasal cannula on the emergency department. Baseline room air. Initial WBC elevated at 17. Imaging study obtained on admission CTA revealing left upper lobe pneumonia. No evidence of pulmonary embolus. VERONICA with elevated creatinine 1.6, magnesium 1.2. Patient received 1 L LR, Levaquin, albuterol nebulizer. Due to new requirement for supplemental oxygen requirement will continue to monitor O2 closely with continued antibiotic therapy. 1. Pneumonia left upper lobe/acute respiratory failure with hypoxia/COPD: Imaging study as noted above with evidence of left upper lobe pneumonia. Initial WBC 17, VBG lactic acid 3.8, IV fluid bolus received along with Levaquin while in the emergency department, cultures obtained prior to antibiotics/pending. ?During hospital course, patient became hypotensive, required fluid resuscitation and transient Levophed with improvement in blood pressures. ? Overall, patient gradually improved with IV vancomycin, cefepime, doxycycline. White count and procalcitonin worse before improvement. WBC today 14.9, on room air with good saturations on walk test. ? Discussed with pulmonology, discharged with levofloxacin 750 mg for 4 more days. Will follow-up with pulmonology within 2 weeks. 2. VERONICA, resolved: Normalized with IV fluids. 4. CAD/HHD/HLD: Continue home aspirin, lisinopril, statin. Holding home metoprolol tartrate for now, as BP stable. Follow-up with PCP for further management. 5. Tobacco use disorder: Encouraged cessation, as this affects all aspects of care. 6. BPH: Continue home tadalafil 5 mg. Total time spent on discharge: 32 minutes on chart review, counseling, documentation, and direct care with patient. Exam Data for Last 24 hours Vital signs and Labs for Last 24 Hours: Temp Pulse Resp BP Pulse Ox O2 Del Method O2 Flow Rate 98.8 F 79 27 H 129/69 91 L Room Air 1 05/16/25 08:06 05/16/25 08:06 05/16/25 08:06 05/16/25 08:06 05/16/25 08:06 05/16/25 09:00 05/15/25 09:00 Laboratory Results - last 24 hr 05/15/25 08:08: MRSA (PCR) Negative 05/16/25 04:20: WBC 14.9 H, RBC 3.81 L, Hgb 11.8 L, Hct 35.4 L, MCV 92.9, MCH 31.0, MCHC 33.3, RDW 13.6, Plt Count 146, MPV 10.4, Neut % (Auto) 87.7 H, Lymph % (Auto) 7.8 L, [place] % (Auto) 3.5, Eos % (Auto) 0.4, Baso % (Auto) 0.3, Neut # (Auto) 13.1 H, Lymph # (Auto) 1.2, [place] # (Auto) 0.5, Eos # (Auto) 0.1, Baso # (Auto) 0.0, Sodium 132 L, Potassium 3.4 L, Chloride 108 H, Carbon Dioxide 24, Anion Gap 3.4 L, BUN 22 H, Creatinine 0.90, Estimated Creat Clear 111, Estimated GFR 86, Est GFR ( Amer) 104 D, Glucose 87, Calcium 8.0 L, Magnesium 2.0 D, Total Bilirubin 0.7, AST 36, ALT 28, Alkaline Phosphatase 114, C-Reactive Protein 250.9 H, Total Protein 5.6 L, Albumin 2.9 L, Globulin 2.7, Albumin/Globulin Ratio 1.1, Procalcitonin 3.11 H 05/16/25 07:50: Vancomycin Trough 7.5 I & O for Last 24 hours: Intake & Output 05/13/25 05/14/25 05/15/25 05/16/25 23:59 23:59 23:59 23:59 Intake Total 5506.947 / 6226.947 4322.094 / 4322.094 450 / 450 Output Total 700 / 700 1050 / 1050 525 / 525 Balance 4806.947 / 5526.947 3272.094 / 3272.094 -75 / -75 Weight 87.317 kg 89.312 kg 90.265 kg Microbiology Reports for the Last 24 Hours: Microbiology 05/14/25 11:25 Sputum - Expectorated Sputum Gram Stain - Final 05/14/25 11:25 Sputum - Expectorated Sputum Sputum Culture - Preliminary 05/14/25 05:47 Blood Blood Culture - Preliminary NO GROWTH AFTER 48 HOURS 05/14/25 05:40 Blood Blood Culture - Preliminary NO GROWTH AFTER 48 HOURS Constitutional Constitutional: no acute distress and chronically ill appearing *Routine HEENT Exam Head: Present normocephalic Eye: Present EOMI and PERRL ENT: Present mucous membranes moist *Routine Neck Exam Neck: Present supple; Absent lymphadenopathy *Routine Respiratory Exam Respiratory: Present CTA bilaterally *Routine Cardiovascular Exam Cardiovascular: Present RRR *Routine Abdominal Exam Abdominal: Present soft and normoactive bowel sounds; Absent tenderness *Routine Extremities Exam Extremities: Absent cyanosis, clubbing or edema *Routine Skin Exam Skin: Present warm; Absent rash *Routine Neurological Exam Neurological: Present alert and oriented X3 Results Data Completed and Pending Labs on day of discharge: Labs from last 24 hours 05/16/25 05/16/25 05/15/25 07:50 04:20 08:08 WBC 14.9 H RBC 3.81 L Hgb 11.8 L Hct 35.4 L MCV 92.9 MCH 31.0 MCHC 33.3 RDW 13.6 Plt Count 146 MPV 10.4 Neut % (Auto) 87.7 H Lymph % (Auto) 7.8 L [place] % (Auto) 3.5 Eos % (Auto) 0.4 Baso % (Auto) 0.3 Neut # (Auto) 13.1 H Lymph # (Auto) 1.2 [place] # (Auto) 0.5 Eos # (Auto) 0.1 Baso # (Auto) 0.0 Sodium 132 L Potassium 3.4 L Chloride 108 H Carbon Dioxide 24 Anion Gap 3.4 L BUN 22 H Creatinine 0.90 Estimated Creat Clear 111 Estimated GFR 86 Est GFR ( Amer) 104 D Glucose 87 Calcium 8.0 L Magnesium 2.0 D Total Bilirubin 0.7 AST 36 ALT 28 Alkaline Phosphatase 114 C-Reactive Protein 250.9 H Total Protein 5.6 L Albumin 2.9 L Globulin 2.7 Albumin/Globulin Ratio 1.1 Procalcitonin 3.11 H Vancomycin Trough 7.5 MRSA (PCR) Negative Preliminary micro results at discharge 05/14/25 11:25 Sputum Culture - Preliminary Sputum - Expectorated Sputum 05/14/25 05:47 Blood Culture - Preliminary Blood NO GROWTH AFTER 48 HOURS 05/14/25 05:40 Blood Culture - Preliminary Blood NO GROWTH AFTER 48 HOURS DS: Diagnosis Discharge Diagnosis (1) Acute respiratory failure with hypoxia: Status: Acute Code(s): J96.01 - Acute respiratory failure with hypoxia (2) Septic shock: Status: Acute Code(s): A41.9 - Sepsis, unspecified organism; R65.21 - Severe sepsis with septic shock (3) Pneumonia of left upper lobe due to infectious organism: Status: Acute Code(s): J18.9 - Pneumonia, unspecified organism Meds Home Medications and Allergies Home Medications ?Medication ?Instructions ?Recorded ?Confirmed ?Type aspirin 81 mg tablet,delayed 81 mg PO DAILY 06/25/20 05/14/25 History release (Adult Low Dose Aspirin) atorvastatin 80 mg tablet 80 mg PO DAILY 05/14/25 05/14/25 History lisinopril 2.5 mg tablet 2.5 mg PO DAILY 05/14/25 05/14/25 History metoprolol tartrate 25 mg tablet 25 mg PO BID 05/14/25 05/14/25 History Held on 05/16/25. Instructions: Resume on 05/30/25. Your blood pressures were stable without this medication. Please follow-up with your PCP to discuss restarting this medication. tadalafil 5 mg tablet 5 mg PO DAILY 05/14/25 05/14/25 History levofloxacin 750 mg tablet 750 mg PO DAILY 4 days #4 tabs 05/16/25 Rx New Prescriptions to Start Prescriptions: levofloxacin Erik Ramirez Allergies Allergy/AdvReac Type Severity Reaction Status Date / Time No Known Allergies Allergy Verified 05/13/25 15:03 Discharge Plan Disposition Patient Disposition: Home, Self-Care Condition: Fair Discharge Order Discharge Orders: Discharge Order (Routine); Ordered 05/16/25 Ordered By: Erik Ramirez Follow up Plan Follow up with: Silvino Miranda APRN [Primary Care Provider, Family Practice] - 05/21/25 11:00 am Edilma Millard MD [Physician, Pulmonology] - 05/20/25 1:00 pm Prescriptions/Medication Reconciliation: New levofloxacin 750 mg tablet 750 mg PO DAILY 4 Days Qty: 4 0RF Continued aspirin [Adult Low Dose Aspirin] 81 mg tablet,delayed release (DR/EC) 81 mg PO DAILY tadalafil 5 mg Tablet 5 mg PO DAILY atorvastatin 80 mg tablet 80 mg PO DAILY lisinopril 2.5 mg tablet 2.5 mg PO DAILY Held metoprolol tartrate 25 mg tablet 25 mg PO BID Hold Instructions: Resume on 05/30/25. Your blood pressures were stable without this medication. Please follow-up with your PCP to discuss restarting this medication. Problem Reconciliation Problems Reviewed?: Yes Patient Discharge Instructions Print Language: Japanese Providers Primary Care Provider: Silvino Miranda Admit Provider: Paramjit Valentine Attending Provider: Paramjit Valentine
--- NOTE | 2025-05-17 09:54 | SW/DCPLANNER ---
Spoke with patient on the phone. Patient stated that he is doing well. Patient stated that he is aware of his upcoming appointments. Patient stated that he was able to nut picker his new medicine from [facility]. Patient stated that he has no concerns or questions at this time. Michelle Marcelo
== END 2025-05-16 11:55 | disposition home or self-care (01) | DRG 871 ==
LOC: ER 04:46 → 2ND 05:54 → ICU 10:59
PROVIDERS: Internal Medicine Pulmonary Disease; Nurse Practitioner Acute Care; Student in an Organized Health Care Education/Training Program; Admitting Provider Internal Medicine Adolescent Medicine; Emergency Provider Emergency Medicine; PCP Nurse Practitioner Family; Visit Provider Internal Medicine Adolescent Medicine
DX: A41.9 Sepsis, unspecified organism (principal); J18.9 Pneumonia, unspecified organism; J96.01 Acute respiratory failure with hypoxia; R65.21 Severe sepsis with septic shock; N17.9 Acute kidney failure, unspecified; J44.1 Chronic obstructive pulmonary disease with (acute) exacerbation; J44.0 Chronic obstructive pulmonary disease with (acute) lower respiratory infection; I25.10 Atherosclerotic heart disease of native coronary artery without angina pectoris; N40.0 Benign prostatic hyperplasia without lower urinary tract symptoms; Z79.899 Other long term (current) drug therapy; E83.42 Hypomagnesemia; R07.89 Other chest pain; E78.2 Mixed hyperlipidemia; I11.9 Hypertensive heart disease without heart failure; E07.9 Disorder of thyroid, unspecified; Z71.6 Tobacco abuse counseling; Z79.82 Long term (current) use of aspirin; F17.210 Nicotine dependence, cigarettes, uncomplicated
CPT/HCPCS: 0223U; 36415; 71045; 71275; 80053; 80202; 82803; 83605; 83735; 84145; 84484; 85025; 86140; 86803; 87040; 87070; 87077; 87205; 87389; 87641; 89220; 94640; 94760; 94761; 99285; J0692; J1644; J1650; J1885; J1956; J2270; J2405; J3375; J3475; J7030; J7040; J7050; J7120; Q9967

== ENCOUNTER 2025-05-20 13:45 | Outpatient (CLI) | payer OTHER, SELFPAY ==
--- NOTE | 2025-05-20 13:49 | XR_ITS ---
FINAL REPORT CLINICAL HISTORY: sob states dx yesterday; pneumonia f/u COMPARISON: 05/16/2025 FINDINGS: 2 views of the chest were obtained . The heart is normal in size. The mediastinum is within normal limits. Patchy airspace disease is seen in the left perihilar region with moderate improvement. There is a small left pleural effusion. Right lung is clear. There is no pneumothorax. Osseous structures are unremarkable. IMPRESSION: Moderate improvement of left lung pneumonia. Recommend continued follow-up. Reviewed, Interpreted and Dictated by Dante Ortega MD Transcribed by Gela Duran Authenticated and . [facility]
== END 2025-05-20 23:59 ==
LOC: RAD 13:46
PROVIDERS: PCP Nurse Practitioner Family; Visit Provider Internal Medicine
DX: J18.9 Pneumonia, unspecified organism (principal); J90 Pleural effusion, not elsewhere classified
CPT/HCPCS: 71046